=== PATIENT | female | born 1945 | race Caucasian/White ===

== ENCOUNTER 2016-02-05 14:54 | Inpatient (IN) | payer MEDICARE, BC ==
[~2016-02-05] VITALS: Ht 157.5 cm; Wt 73.0 kg
[2016-02-05] VITALS (13 sets, daily range): BP systolic 124–170; BP diastolic 80–96; PULSE 88–104; RESP 14–20; TEMP 97–98.8; O2SAT 95–98
[~2016-02-05 14:54] MED LIST: DIAZ5 PO; GABA600T PO; IPRAAER IN; LATU80TA PO; LOVA20TA PO; METF500 PO; PRED20 PO; REME15TA PO
[2016-02-05] MEDS ORDERED: SODIUM CHLORIDE 0.9% FLUSH 5 ML FLUSH IVF PRN (15:30)
[2016-02-05] MEDS ORDERED: SODIUM CHLORID 0.9% 500 ML INJ 500 ML IV ONE (15:30)
[2016-02-05] MEDS ORDERED: ASPIRIN 81 MG CHEW TAB PO ONE (15:30)
[2016-02-05] MEDS ORDERED: HEPARIN-D5W INJ 250 ML IV SCH (15:30)
[2016-02-05] MEDS ORDERED: CLOPIDOGREL 300 MG TAB PO ONE (15:30)
--- NOTE | 2016-02-05 15:38 | PD ---
HPI Chief Complaint: Chest Pain Time Seen by Provider: 15:04 Travel History International Travel<30 days: No Contact w/Intl Traveler<30days: No Traveled to known affect area: No History of Present Illness HPI Patient is a 70-year-old female who presents to emergency room with complaints of chest pain. Reports that she began feeling short of breath last night, reports that she felt tightness in her chest while at rest around 9 PM last night. Patient reports that she has history of COPD, reports "I think that I am having a COPD exacerbation." Patient reports that she is unable to catch her breath at this time. Patient reports that she feels sweaty right now while in ER. Denies cough or congestion. Patient denies fevers or chills. Patient reports that she does have a reports analyst, patient cannot remember her name of her reports analyst. Reports no history of coronary artery disease or LA in the past. Patient reports that she does have history of hypertension. PFSH Past Medical History COPD: Yes Diminished Hearing: No Hypertension: Yes Tetanus Vaccination: Unknown Past Surgical History Appendectomy: Yes Other Surgery: Yes (facial and oral reconstruction; tmj joint) Family History Family History: Negative Social History Alcohol Use: Yes (rare) Tobacco Use: Yes Substance Use: No Allergies-Medications (Allergen,Severity, Reaction): Coded Allergies: Sulfa (Verified Allergy, Severe, 08/05/15) Morphine (Verified Allergy, Intermediate, 08/05/15) Reported Meds & Prescriptions Reported Meds & Active Scripts Active Review of Systems General / Constitutional: No: Fever Eyes: No: Visual changes HENT: No: Headaches Cardiovascular: Positive: Chest Pain or Discomfort, Diaphoresis Respiratory: Positive: Shortness of Breath Gastrointestinal: No: Abdominal Pain Genitourinary: No: Dysuria Musculoskeletal: No: Pain Skin: No Rash Neurologic: No: Weakness Psychiatric: No: Depression Endocrine: No: Polydipsia Hematologic/Lymphatic: No: Easy Bruising Physical Exam Narrative GENERAL: Patient in moderate distress SKIN: Warm, pt diaphoretic HEAD: Atraumatic. Normocephalic. EYES: Pupils equal and round. No scleral icterus. No injection or drainage. ENT: No nasal bleeding or discharge. Mucous membranes pink and moist. NECK: Trachea midline. No JVD. CARDIOVASCULAR: Regular rate and rhythm. +3 systolic murmur RESPIRATORY: No accessory muscle use. Clear to auscultation. Breath sounds equal bilaterally. GASTROINTESTINAL: Abdomen soft, non-tender, nondistended. Hepatic and splenic margins not palpable. MUSCULOSKELETAL: No obvious deformities. No clubbing. No cyanosis. No edema. NEUROLOGICAL: Awake and alert. No obvious cranial nerve deficits. Motor grossly within normal limits. Normal speech. PSYCHIATRIC: Appropriate mood and affect; insight and judgment normal. Data Data Last Documented VS Vital Signs Date Time Temp Pulse Resp B/P Pulse Ox O2 Delivery O2 Flow Rate FiO2 02/05/16 15:23 96 Room Air 02/05/16 15:16 95 02/05/16 14:56 98.2 17 132/87 Orders Electrocardiogram (02/05/16 ) Electrocardiogram (02/05/16 15:21) B-Type Natriuretic Peptide (02/05/16 15:21) Ckmb (Isoenzyme) Profile (02/05/16 15:21) Complete Blood Count With Diff (02/05/16 15:21) Comprehensive Metabolic Panel (02/05/16 15:21) Prothrombin Time / Inr (Pt) (02/05/16 15:21) Act Partial Throm Time (Ptt) (02/05/16 15:21) Troponin I (02/05/16 15:21) Chest, Single Ap (02/05/16 15:21) Ecg Monitoring (02/05/16 15:21) Iv Access Insert/Monitor (02/05/16 15:21) Oximetry (02/05/16 15:21) Aspirin Chew (Aspirin Chew) (02/05/16 15:30) Clopidogrel (Plavix) (02/05/16 15:30) Sodium Chloride 0.9% Flush (Ns Flush) (02/05/16 15:30) Sodium Chlorid 0.9% 500 Ml Inj (Ns 500 M (02/05/16 15:30) I-Stat Profile (02/05/16 15:22) I-Stat Creatinine (02/05/16 15:22) Heparin Infusion LARRY.Q1H (02/05/16 15:22) Heparin Inj (Heparin Inj) (02/05/16 21:30) Heparin Inj (Heparin Inj) (02/05/16 21:30) Heparin-D5w Inj (Heparin-D5w Inj) (02/05/16 15:30) Admit To Inpatient (02/05/16 ) Inpatient Certification (02/05/16 ) MDM Medical Decision Making Medical Screen Exam Complete: Yes Emergency Medical Condition: Yes Interpretation(s) Vital Signs Date Time Temp Pulse Resp B/P Pulse Ox O2 Delivery O2 Flow Rate FiO2 02/05/16 15:23 96 Room Air 02/05/16 15:16 95 96 02/05/16 14:56 98.2 104 17 132/87 96 Vital Signs Date Time Temp Pulse Resp B/P Pulse Ox O2 Delivery O2 Flow Rate FiO2 02/05/16 15:23 96 Room Air 02/05/16 15:16 95 96 02/05/16 14:56 98.2 104 17 132/87 96 Differential Diagnosis Acute Coronary Syndrome, Unstable angina, COPD Exacerbation Narrative Course Patient is a 70-year-old female who presents emergency with complaints of chest pain which began around 9 PM last night. Patient reports history of COPD, reports "I think I am having a COPD exacerbation." Patient reports, "I'm having a hard time breathing, I just can' t catch my breath." Patient was placed on pulse oximeter as well as a case monitor on arrival to ER. EKG obtained, patient with ST segment elevations and leads V2 to V6 STEMI Alert called overhead. Case as well as EKG reviewed with Dr. Joyner, will bring patient to [facility] I-STAT labs Sodium 135 Potassium 4.9 BUN 29 Creatinine 0.7 Glucose 122 Hemoglobin 18.7 Hematocrit 55% Critical Care Narrative Aggregate critical care time was 30 minutes. Time to perform other separately billable procedures was not included in the critical care time. My time did not include minutes spent treating any other patients simultaneously or on activities that did not directly contribute to the patient's treatment. The services I provided to this patient were to treat and/or prevent clinically significant deterioration that could result in: , decompensation, deterioration I provided critical care services requiring my management, as noted below: Chart data review, documentation time, medication orders and management, vital sign assessments/reviewing monitor data, ordering and reviewing lab tests, ordering and interpreting/reviewing x-rays and diagnostic studies, care of the patient and discussion of the patient with the admitting physicians. Diagnosis Primary Impression: STEMI (ST elevation myocardial infarction) Qualified Code: I21.3 - ST elevation myocardial infarction (STEMI), unspecified artery Admitting Information Admitting Physician Requests: Admit Edyta Martinez 31, 2016 15:38
[2016-02-05] MEDS ORDERED: HEPARIN-NS/PF INJ 500 ML ONE (15:51)
[2016-02-05] MEDS ORDERED: MIDAZOLAM HCL 2 MG/2 ML VIAL ONE (15:53)
--- NOTE | 2016-02-05 16:04 | RADRPT ---
EXAM DATE/TIME: 02/05/2016 15:35 [facility] COMPARISON: CHEST SINGLE AP, August 05, 2015, 0:46. INDICATIONS : Stemi alert. MEDICAL HISTORY : Chronic obstructive pulmonary disease. SURGICAL HISTORY : None. ENCOUNTER: Initial ACUITY: 1 day PAIN SCORE: 10/10 LOCATION: Bilateral chest FINDINGS: Small lung volumes with mild atelectasis/vascular crowding. No overt edema seen. No pleural effusion or pneumothorax. Heart size normal. CONCLUSION: Suboptimal inspiration. No acute disease demonstrated. Followup 2 view study recommended when clinica lly feasible. Scott Jiang MD on February 05, 2016 at 16:02 Board Certified Radiologist. This report was verified electronically.
[2016-02-05 16:07] LABS: I-STAT POTASSIUM 4.9 MMOL/L (3.5-4.9)
[2016-02-05] MEDS ORDERED: HEPARIN SODIUM - IV 10,000 UNITS/10 ML VIAL ONE (16:12)
[2016-02-05 16:18] LABS: BASOPHIL # 0.1 TH/MM3 (0-0.2); BASOPHIL % 0.4 % (0.0-2.0); EOSINOPHIL # 0.1 TH/MM3 (0-0.4); EOSINOPHIL % 0.4 % (0.0-4.0); HEMATOCRIT 53.6 % (35.0-46.0); HEMO FLAGS DIFF FINAL; LYMPH % 8.9 % (9.0-44.0); LYMPHOCYTE # 1.7 TH/MM3 (1.0-4.8); MEAN CORPUSCULAR HEMOGLOBIN 30.2 PG (27.0-34.0); MEAN CORPUSCULAR HGB CONC 33.6 % (32.0-36.0); MONO % 7.7 % (0.0-8.0); NEUT % 82.6 % (16.0-70.0); PLATELET COUNT 285 TH/MM3 (150-450); RED BLOOD COUNT 5.96 MIL/MM3 (4.00-5.30); RED CELL DISTRIBUTION WIDTH 13.7 % (11.6-17.2); WHITE BLOOD COUNT 19.4 TH/MM3 (4.0-11.0)
[2016-02-05 16:21] LABS: APTT (PATIENT) 27.4 SEC (24.3-30.1); INTERNATIONAL NORMALIZED RATIO 0.9 RATIO; PROTHROMBIN TIME - PATIENT 10.3 SEC (9.8-11.6)
[2016-02-05] MEDS ORDERED: IOHEXOL 350 MG/ML 100 ML BTL (for Cath Lab) OTHER ONE (16:30)
[2016-02-05 16:34] LABS: ALT (GPT) 28 U/L (10-53); ANION GAP 10 MEQ/L (5-15); AST (GOT) 32 U/L (15-37); BICARBONATE 23.1 MEQ/L (21.0-32.0); BLOOD UREA NITROGEN 24 MG/DL (7-18); CHLORIDE 103 MEQ/L (98-107); GLOMERULAR FILTRATION RATE 54 ML/MIN (>89); POTASSIUM 4.5 MEQ/L (3.5-5.1); SODIUM (NA) 136 MEQ/L (136-145)
[2016-02-05 16:37] LABS: ALKALINE PHOSPHATASE 78 U/L (45-117); CREATINE KINASE 183 U/L (26-192); TOTAL BILIRUBIN ADULT 0.4 MG/DL (0.2-1.0)
[2016-02-05] MEDS ORDERED: NITROGLYCERIN 0.4 MG SL 25 TABS/BTL SL ONE (16:38)
[2016-02-05] MEDS ORDERED: ONDANSETRON HCL 4 MG/2 ML VIAL IVP PRN (16:45)
[2016-02-05] MEDS ORDERED: BACITRACIN OINT 0.9 GM PKT TOP ONE (16:45)
[2016-02-05] MEDS ORDERED: MISC INFORMATION XX ONE (16:45)
[2016-02-05 16:59] LABS: CKMB 14.4 NG/ML (0.5-3.6)
[2016-02-05] MEDS ORDERED: ACETAMINOPHEN 325 MG TAB PO PRN (17:15)
[2016-02-05] MEDS: MORPHINE SULFATE 4 MG/ML INJ IV PUSH PRN ×2 (17:18→21:09)
--- NOTE | 2016-02-05 17:23 | MB ---
cc: SIMON COOPER MD DATE OF CONSULTATION 02/05/[address]-elevation myocardial infarction. HISTORY OF PRESENT ILLNESS A 70-year-old female who presented to the emergency department with acute onset of shortness of breath and chest pain. She states that early this morning she developed this tightness in her chest. She has had some on and off symptoms since last night around 9:00 p.m. She does have a history of COPD and initially thought her shortness of breath was due to an exacerbation. Since her symptoms progressed she came to the emergency department. There an electrocardiogram was performed which did show anterolateral ST elevation. STEMI protocol was initiated. 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 PAST MEDICAL HISTORY COPD, hypertension. FAMILY HISTORY Denies any family history of early coronary disease, sudden cardiac . SOCIAL HISTORY Prior tobacco use. Occasional alcohol use. No substance abuse. ALLERGIES SULFA, MORPHINE. MEDICATIONS See med reconciliation. REVIEW OF SYSTEMS 12-point review of system was performed, negative unless otherwise noted in the history of present illness. PHYSICAL EXAMINATION VITAL SIGNS: Temperature 98, pulse is 93, blood pressure 141/80 mmHg. GENERAL: Alert and oriented x3. No acute distress. HEENT: Exam shows pupils are reactive to light and accommodation. Extraocular movements are intact. No elevation in jugular venous distension. No thyromegaly or lymphadenopathy. No carotid bruits. LUNGS: Clear to auscultation bilaterally. Decreased breath sounds throughout, mild end-expiratory wheeze. CARDIOVASCULAR: Regular rate and rhythm without murmurs, rubs or gallops. ABDOMEN: Abdominal exam is nontender, nondistended. Good bowel sounds. No hepatosplenomegaly. EXTREMITIES: No clubbing, cyanosis or edema. Good peripheral pulses. Cranial nerves intact. Motor, sensory grossly intact. LABORATORY DATA None. ELECTROCARDIOGRAM Electrocardiogram sinus rhythm, anterolateral ST-elevation. ASSESSMENT 1. ST-elevation myocardial infarction. 2. COPD 3. Hypertension. PLAN Given the patient's symptoms and EKG changes which is new in comparison to a prior EKG she will be brought emergently to the cardiac catheterization lab for attempted revascularization. The risks, benefits and alternatives discussed with the patient. She understood, consented to proceed. MD MARIA E Lin/RENALDO /3:59 PM /5:04 PM ZIA
--- NOTE | 2016-02-05 17:44 | MA ---
cc: SIMON COOPER MD DATE 02/05/2016 PROCEDURE PERFORMED 1. Fluoroscopy with interpretation. 2. Coronary angiography. 3. Left heart catheterization. 4. Left ventriculography. METHOD The risks, benefits and alternatives discussed with the patient. The patient understood and consent to procedure. PROCEDURE IN DETAIL The patient brought to the catheterization lab and placed on the catheterization table. The right wrist was prepped and draped in sterile fashion. Right wrist was anesthetized with 2% lidocaine. Right radial artery was cannulated and a 6-Qatari 7 cm sheath was placed without difficulty. ____ was actually acceptable. Left heart catheterization; 6-Qatari pigtail catheter was advanced across the aortic valve without difficulty. Intraventricular hemodynamics measured 141/19 mmHg. Coronary angiography; Left coronary circulation was selectively engaged 6-Qatari JL-3.5 catheter. Right coronary circulation selectively engaged with 6-Qatari JR-5 catheter. Angiography findings as follows: 1. Left main coronary is angiographically normal. 2. Left anterior descending coronary has mild luminal irregularities. There does appear to be a small myocardial bridge distally. 3. Left circumflex has mild luminal irregularities. 4. Right coronary is a dominant vessel giving rise to a posterior descending branch. Right coronary has minor luminal irregularities. Left ventriculography; Left ventriculography was performed right anterior oblique using a 30 cc contrast injection good opacification. Left ventricle ejection fraction visually estimated at 35%. There is mid anterior intraapical, apical, inferoapical akinesis. The anterior and posterior basal segments were hyperkinetic. The appearance of left ventriculogram was consistent with Takotsubo cardiomyopathy. CONCLUSION 1. Takotsubo cardiomyopathy, nonischemic etiology. 2. Mild nonobstructive coronary disease. 3. Normal to mildly elevated left-sided filling pressures. PLAN The patient has had a recent stressful event with her sister having a major surgery. Symptomatically, she seems to be doing well. She is still having some vague chest pain. EKG clearly showed some ST-elevation but her coronary angiogram was unremarkable and left ventriculogram consistent with her presentation of Takotsubo cardiomyopathy. Will initiate JENNIFER inhibitors, aspirin and statin. Radial sheath was removed. She does have some clubbing and cyanosis in all digits on both hands. The patient says she does have this periodically. We will monitor closely post procedure. MD KRYSTYNA Lin /4:41 PM /5:20 PM
[2016-02-05] MEDS ORDERED: SODIUM CHLOR 0.9% 1000 ML INJ 1,000 ML IV SCH (18:00)
[2016-02-05] MEDS: HYDROmorphone HCL PF 1 MG/ML VIAL IV PUSH PRN ×2 (18:51→23:41)
[2016-02-05] MEDS: FAMOTIDINE 20 MG TAB PO SCH (21:17)
[2016-02-05] MEDS: ATORVASTATIN 40 MG TAB PO SCH (21:17)
[2016-02-05] MEDS: CARVEDILOL 3.125 MG TAB PO SCH (21:17)
[2016-02-05] MEDS ORDERED: HEPARIN SODIUM - IV 10,000 UNITS/10 ML VIAL IV PRN ×2 (21:30)
[2016-02-05] MEDS ORDERED: FUROSEMIDE 40 MG/4 ML VIAL IV PUSH ONE (22:21)
--- NOTE | 2016-02-05 22:36 | RADRPT ---
EXAM DATE/TIME: 02/05/2016 21:51 [facility] COMPARISON: No previous studies available for comparison. INDICATIONS : Mid chest pains starting this morning. IV CONTRAST: 70 cc Omnipaque 350 (iohexol) IV RADIATION DOSE: 8.25 CTDIvol (mGy) MEDICAL HISTORY : Chronic obstructive pulmonary disease. Hypertension. SURGICAL HISTORY : Appendectomy. ENCOUNTER: Initial ACUITY: 1 day PAIN SCALE: 8/10 LOCATION: chest TECHNIQUE: Volumetric scanning was performed using a multi-row detector CT scanner. The data was post processed with a variety of visualization algorithms including full volume maximum intensity projection, multi -planar sliding thin slab reformation, curved planar reformation, and surface rendering techniques. Using automated exposure control and adjustment of the mA and/or kV according to patient size, radiat ion dose was kept as low as reasonably achievable to obtain optimal diagnostic quality images. FINDINGS: LUNGS: There is no consolidation or pneumothorax. No concerning pulmonary nodule is visualized. No pleural fluid is present. MEDIASTINUM: No abnormally enlarged lymph nodes by CT criteria. No axillary or hilar abnormalities are identified. Pulmonary arteries grossly unremarkable. ABDOMEN: The liver and spleen are free of focal defects. The gallbladder and pancreas demonstrate no abnormali ty. The adrenal glands are normal. The kidneys demonstrate no evidence of solid renal mass or hydrone phrosis. No free fluid or abdominal masses are identified. No para-aortic adenopathy is seen. PELVIS: No evidence of free fluid or pelvic mass. No abnormally enlarged inguinal or retroperitoneal lymph no alaina are present. The bladder is unremarkable. THORACIC AORTA: The thoracic aortic root is normal with normal branching of the great vessels. There is no evidence of aneurysm or dissection. There is moderate severity atherosclerotic plaque. ABDOMINAL AORTA: The aorta is normal in caliber without aneurysm or dissection. The renal arteries are patent bilater ally. The proximal celiac and superior mesenteric arteries are patent and normal in diameter. There is moderate to severe aortoiliac atherosclerosis. No aneurysm. No ulcerated plaque. PELVIC VESSELS: The internal iliac and external iliac vessels are patent without aneurysm or stenosis. CONCLUSION: No dissection, aneurysm or other acute abnormality of the aorta. There is mural atherosclerosis. No p erceptible inflammatory changes are seen. Trace atelectasis seen of the lung bases. Study discussed w kwabena Joyner by phone. Scott Jiang MD on February 05, 2016 at 22:28 Board Certified Radiologist. This report was verified electronically.
[2016-02-05] MEDS ORDERED: IOHEXOL 350 MG/ML 10 ML VIAL (for RAD DIAG) IV ONE (23:01)
[2016-02-06] VITALS (9 sets, daily range): BP systolic 102–117; BP diastolic 59–77; PULSE 73–90; RESP 20–22; TEMP 96.8–99.8; O2SAT 91–99
[2016-02-06] MEDS: RESP: ALBUTEROL 2.5 MG/IPRATROPIUM 0.5 MG NEB (SCH) NEB ×5 (00:12→22:04)
[2016-02-06] MEDS: MORPHINE SULFATE 4 MG/ML INJ IV PUSH PRN ×4 (01:40→17:46)
[2016-02-06] MEDS ORDERED: METOPROLOL TARTRATE 5 MG/5 ML VIAL IV PUSH PRN (03:15)
[2016-02-06] MEDS ORDERED: RESP: ALBUTEROL 2.5 MG/3 ML NEB (PRN) NEB (03:30)
[2016-02-06] MEDS ORDERED: oxyCODONE/ACETAMINOPHEN 10 MG/325 MG TAB PO PRN ×2 (03:30→09:30)
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
[2016-02-06] MEDS: oxyCODONE/ACETAMINOPHEN 10 MG/325 MG TAB PO PRN ×3 (04:10→13:10)
[2016-02-06] MEDS: HYDROmorphone HCL PF 1 MG/ML VIAL IV PUSH PRN ×4 (04:10→17:43)
[2016-02-06] MEDS: CARVEDILOL 3.125 MG TAB PO SCH ×2 (08:06→20:44)
[2016-02-06] MEDS: ISOSORBIDE MONONITRATE 30 MG TAB PO SCH ×2 (08:06→08:36)
[2016-02-06] MEDS: LISINOPRIL 20 MG TAB PO SCH (08:06)
[2016-02-06] MEDS: ASPIRIN EC 81 MG TABEC PO SCH (08:06)
[2016-02-06] MEDS: FAMOTIDINE 20 MG TAB PO SCH ×2 (08:06→20:45)
[2016-02-06] MEDS: HEPARIN SODIUM - SQ 10,000 UNITS/ML VIAL SQ SCH ×3 (10:53→20:46)
--- NOTE | 2016-02-06 11:21 | PD.CARD.PN ---
Subjective Subjective Remarks still having + chest pain worse with palpation and deep inspiration transferred to CVICU yesterday. Objective Medications Active Medications Acetaminophen (Tylenol) 325 mg Q4H PRN PO; Start 02/05/16 at 17:15; Stop at 03:29; Status DC Aspirin (Aspirin Chew) 324 mg ONCE ONCE PO Last administered on 02/05/16at 15: 28; Admin Dose 324 MG; Start 02/05/16 at 15:30; Stop 02/05/16 at 15:31; Status DC Aspirin (Ecotrin Ec) 81 mg DAILY PO Last administered on 02/06/16 08:06; Admin Dose 81 MG; Start 02/06/16 at 09:00 Atorvastatin Calcium (Lipitor) 40 mg HS PO Last administered on 02/05/16at 21:17 ; Admin Dose 40 MG; Start 02/05/16 at 21:00 Bacitracin (Bacitracin Oint Packet) 0.9 gm ONCE ONCE TOP; Start 02/05/16 at 16 :45; Stop 02/05/16 at 16:46; Status DC Carvedilol (Coreg) 3.125 mg Q12HR PO Last administered on 02/06/16 08:06; Admin Dose 3.125 MG; Start 02/05/16 at 21:00 Clopidogrel Bisulfate (Plavix) 600 mg ONCE ONCE PO Last administered on at 15:30; Admin Dose 600 MG; Start 02/05/16 at 15:30; Stop 02/05/16 at 15:31 ; Status DC Famotidine (Pepcid) 20 mg BID PO Last administered on 02/06/16 08:06; Admin Dose 20 MG; Start 02/05/16 at 21:00 Fentanyl Citrate (fentaNYL INJ) 100 mcg STK-MED ONCE .ROUTE Last administered on 02/05/16at 16:11; Admin Dose 100 MCG; Start 02/05/16 at 15:53; Stop at 15:54; Status DC Furosemide (Lasix Inj) 40 mg NOW ONCE IV PUSH Last administered on 02/05/16at 22:49; Admin Dose 40 MG; Start 02/05/16 at 22:21; Stop 02/05/16 at 22:22; Status DC Heparin Sodium (Porcine) (Heparin Inj) 5,000 units Q8HR SQ Last administered on 02/06/16 10:53; Admin Dose 5,000 UNITS; Start 02/06/16 at 10:00 Heparin Sodium (Porcine) (Heparin Inj) 5,000 units UNSCH PRN IV; Start at 21:30; Stop 02/05/16 at 21:30; Status DC Heparin Sodium (Porcine) (Heparin Inj) 10,000 units STK-MED ONCE .ROUTE; Start 02/05/16 at 16:12; Stop 02/05/16 at 16:13; Status DC Heparin Sodium (Porcine) 2500 units 2,500 units UNSCH PRN IV; Start 02/05/16 at 21:30; Stop 02/05/16 at 21:30; Status DC Heparin Sodium/ Dextrose 250 ml @ 0 mls/hr TITRATE IV Last administered on 02/04at 15:48; Admin Dose 0 MLS/HR; Start 02/05/16 at 15:30; Stop 02/05/16 at 16 :37; Status DC Heparin Sodium/ Sodium Chloride (Heparin-NS/Pf Inj) 500 ml @ As Directed STK- MED ONCE .ROUTE Last administered on 02/05/16at 15:51; Admin Dose 500 MLS/HR; Start 02/05/16 at 15:51; Stop 02/05/16 at 15:52; Status DC Hydromorphone HCl 0.5 mg 0.5 mg Q4H PRN IV PUSH Last administered on 02/06/16 10:01; Admin Dose 0.5 MG; Start 02/05/16 at 18:00 Iohexol (Omnipaque 350 Inj) 70 ml STK-MED ONCE IV Last administered on at 23:01; Admin Dose 70 ML; Start 02/05/16 at 23:01; Stop 02/05/16 at 23:02 ; Status DC Isosorbide Mononitrate (Imdur) 30 mg DAILY PO Last administered on 02/06/16 08: 06; Admin Dose 30 MG; Start 02/05/16 at 17:00 IV Flush 2 ml 2 ml UNSCH PRN IVF Last administered on 02/06/16 08:06; Admin Dose 2 ML; Start 02/05/16 at 15:30 Lisinopril (Prinivil) 20 mg DAILY PO Last administered on 02/06/16 08:06; Admin Dose 20 MG; Start 02/06/16 at 09:00 Lorazepam (Ativan Inj) 0.5 mg Q6H PRN IV PUSH; Start 02/06/16 at 05:30 Methylprednisolone Sodium Succinate (SoluMEDROL INJ) 40 mg Q6HR IV PUSH; Start 02/06/16 at 12:00; Stop 02/07/16 at 06:01 Metoprolol Tartrate (Lopressor Inj) 2.5 mg Q6H PRN IV PUSH; Start 02/06/16 at 03 :15 Midazolam HCl (Versed Inj) 2 mg STK-MED ONCE .ROUTE Last administered on at 16:10; Admin Dose 2 MG; Start 02/05/16 at 15:53; Stop 02/05/16 at 15:54; Status DC Miscellaneous Information 1 ONCE ONCE XX; Start 02/05/16 at 16:45; Stop 02/04 at 16:46; Status DC Morphine Sulfate (Morphine Inj) 2 mg Q30M PRN IV PUSH Last administered on 09:16; Admin Dose 2 MG; Start 02/05/16 at 17:15 Nitroglycerin (Nitrostat Sl (Adm Override)) 0.4 mg STK-MED ONCE SL Last administered on 02/05/16at 16:38; Admin Dose 0.4 MG; Start 02/05/16 at 16:38; Stop 02/05/16 at 16:39; Status DC Ondansetron HCl (Zofran Inj) 4 mg Q6H PRN IVP; Start 02/05/16 at 16:45 Oxycodone/ Acetaminophen (Percocet 10-325 Mg) 1 tab Q6H PRN PO Last administered on 02/06/16 08:16; Admin Dose 1 TAB; Start 02/06/16 at 03:30 Oxycodone/ Acetaminophen (Percocet 10-325 Mg) 2 tab Q6H PRN PO; Start 02/06/16 at 03:30; Stop 02/06/16 at 03:44; Status DC Oxycodone/ Acetaminophen (Percocet 10-325 Mg) 2 tab Q6H PRN PO; Start 02/06/16 at 09:30 Sodium Chloride (NS 1000 ml Inj) 1,000 ml @ 84 mls/hr [id number] IV Last administered on 02/05/16at 18:55; Admin Dose 84 MLS/HR; Start 02/05/16 at 18:00 ; Stop 02/06/16 at 03:23; Status DC Sodium Chloride (NS 500 ml Inj) 500 ml @ 500 mls/hr ONCE ONCE IV Last administered on 02/05/16at 15:47; Admin Dose 500 MLS/HR; Start 02/05/16 at 15: 30; Stop 02/05/16 at 16:29; Status DC Vital Signs / I&O Vital Signs Date Time Temp Pulse Resp B/P Pulse Ox O2 Delivery O2 Flow Rate FiO2 02/06/16 10:31 20 02/06/16 09:49 97 Nasal Cannula 2.00 02/06/16 09:21 20 02/06/16 09:16 20 02/06/16 08:00 80 02/06/16 08:00 98 Nasal Cannula 2.00 02/06/16 08:00 98.2 80 22 114/73 98 02/06/16 04:00 98 Nasal Cannula 2.00 02/06/16 03:00 99.8 89 20 114/75 97 02/06/16 03:00 90 02/06/16 00:12 97 Nasal Cannula 2.00 02/05/16 23:15 98.4 88 16 149/95 97 02/05/16 23:15 98 Nasal Cannula 2.00 02/05/16 23:15 94 02/05/16 23:00 98.8 92 14 153/91 98 02/05/16 20:59 98.7 88 14 170/96 95 02/05/16 20:00 98.7 96 14 124/93 96 02/05/16 18:30 93 154/94 02/05/16 18:00 88 02/05/16 18:00 88 156/90 02/05/16 17:15 92 159/81 02/05/16 17:00 93 154/94 02/05/16 17:00 93 02/05/16 16:47 97.0 100 20 158/94 97 02/05/16 16:00 100 02/05/16 15:50 93 18 141/80 96 Nasal Cannula 2 02/05/16 15:23 96 Room Air 02/05/16 15:16 95 96 12/31/16 14:56 98.2 104 17 132/87 96 I/O 02/05/16 02/05/16 02/05/16 02/06/16 02/06/16 02/06/16 06:59 14:59 22:59 06:59 14:59 22:59 Intake Total 480 ml Output Total 200 ml Balance 280 ml Intake Oral 480 ml Output Urine Total 200 ml # Bowel Movements 0 Physical Exam GENERAL: SKIN: Warm and dry. HEAD: Normocephalic. EYES: No scleral icterus. No injection or drainage. NECK: Supple, trachea midline. No JVD or lymphadenopathy. CARDIOVASCULAR: Regular rate and rhythm without murmurs, gallops, or rubs. RESPIRATORY: Breath sounds equal bilaterally. No accessory muscle use. GASTROINTESTINAL: Abdomen soft, non-tender, nondistended. MUSCULOSKELETAL: No cyanosis, or edema. BACK: Nontender without obvious deformity. No CVA tenderness. Laboratory Laboratory Tests Test 02/05/16 15:40 White Blood Count 19.4 TH/MM3 Red Blood Count 5.96 MIL/MM3 Hemoglobin 18.0 GM/DL Bedside Hemoglobin 18.7 G/DL Hematocrit 53.6 % Bedside Hematocrit 55.0 % Mean Corpuscular Volume 90.0 FL Mean Corpuscular Hemoglobin 30.2 PG Mean Corpuscular Hemoglobin 33.6 % Concent Red Cell Distribution Width 13.7 % Platelet Count 285 TH/MM3 Mean Platelet Volume 8.6 FL Neutrophils (%) (Auto) 82.6 % Lymphocytes (%) (Auto) 8.9 % Monocytes (%) (Auto) 7.7 % Eosinophils (%) (Auto) 0.4 % Basophils (%) (Auto) 0.4 % Neutrophils # (Auto) 16.0 TH/MM3 Lymphocytes # (Auto) 1.7 TH/MM3 Monocytes # (Auto) 1.5 TH/MM3 Eosinophils # (Auto) 0.1 TH/MM3 Basophils # (Auto) 0.1 TH/MM3 CBC Comment DIFF FINAL Differential Comment Prothrombin Time 10.3 SEC Prothromb Time International 0.9 RATIO Ratio Activated Partial 27.4 SEC Thromboplast Time Bedside Sodium 135 MMOL/L Sodium Level 136 MEQ/L Bedside Potassium 4.9 MMOL/L Potassium Level 4.5 MEQ/L Bedside Chloride 106 MMOL/L Chloride Level 103 MEQ/L Carbon Dioxide Level 23.1 MEQ/L Anion Gap 10 MEQ/L Bedside Blood Urea Nitrogen 29 MG/DL Blood Urea Nitrogen 24 MG/DL Creatinine 1.01 MG/DL Bedside Creatinine 0.7 MG/DL Estimat Glomerular Filtration 54 ML/MIN Rate Bedside Glucose 122 MG/DL Random Glucose 122 MG/DL Calcium Level 9.6 MG/DL Total Bilirubin 0.4 MG/DL Aspartate Amino Transf 32 U/L (AST/SGOT) Alanine Aminotransferase 28 U/L (ALT/SGPT) Alkaline Phosphatase 78 U/L Total Creatine Kinase 183 U/L Creatine Kinase MB 14.4 NG/ML Troponin I 2.98 NG/ML B-Type Natriuretic Peptide 1026 PG/ML Total Protein 8.2 GM/DL Albumin 4.2 GM/DL Thyroid Stimulating Hormone 1.410 uIU/ML 3rd Gen Imaging Last Impressions Chest X-Ray 02/05/16 1521 Signed Impressions: Service Date/Time: Friday, February 05, 2016 15:35 - CONCLUSION: Suboptimal inspiration. No acute disease demonstrated. Followup 2 view study recommended when clinically feasible. Scott Jiang MD Aorta CTA 02/05/16 0000 Signed Impressions: Service Date/Time: Friday, February 05, 2016 21:51 - CONCLUSION: No dissection, aneurysm or other acute abnormality of the aorta. There is mural atherosclerosis. No perceptible inflammatory changes are seen. Trace atelectasis seen of the lung bases. Study discussed with Dr. Joyner by phone. Scott Jiang MD Assessment and Plan Assessment and Plan STEMI - Takotsubo cardiomyopathy. well compensated. mild CAD. no PCI. chest pain - CTA negative. not cardiac. + pleuritic + pericarditis. inflammatory. cont steroids. start NSAIDs. transfer to telemetry floor Kumar Joyner MD Feb 06, 2016 11:21
[2016-02-06] MEDS: methylPREDNISolone SOD SUCC 40 MG/1 ML VIAL IV PUSH SCH ×2 (11:35→17:41)
--- NOTE | 2016-02-06 13:07 | EKG ---
Date Performed: 02/05/2016 Time Performed: 15:09:58 PTAGE: 70 years EKG: Sinus rhythm ST ELEVATION, CONSIDER ANTERIOR INJURY ACUTE AR Compared to PREVIOUS TRACING , the patient has developed changes consistent with an anterolateral ST segment elevation infarction. Clinical correlation will be important. PREVIOUS TRACIN08/05/2015 00 .40 DOCTOR: Veronica Green Interpretating Date/Time 02/06/2016 13:06:01
--- NOTE | 2016-02-06 13:08 | EKG ---
Date Performed: 02/05/2016 Time Performed: 17:10:56 PTAGE: 70 years EKG: Sinus rhythm Anterolateral T wave changes may be due to myocardial ischemia The patient has persistent findings o f an ST segment elevation anterolateral infarct but the tracing is largely unchanged since the most r ecent tracing. Abnormal ECG PREVIOUS TRACING : 02/05/2016 15.09 DOCTOR: Veronica Green Interpretating Date/Time 02/06/2016 13:06:48
--- NOTE | 2016-02-06 13:14 | EKG ---
Date Performed: 02/05/2016 Time Performed: 23:35:40 PTAGE: 70 years EKG: Sinus rhythm Possible inferior infarct - age undetermined Ant/septal and lateral T wave changes suggest myocardia l infarct When compared to previous tracing, progressive changes of an Anterolateral ST segment eleva tion infarction now with possible Inferior wall involvement. Clinical correlation will be important. Abnormal ECG PREVIOUS TRACING : 02/05/2016 17.10 DOCTOR: Veronica Green Interpretating Date/Time 02/06/2016 13:12:54
[2016-02-06 14:15] LABS: AUTOMATED NEUTROPHIL # 10.2 TH/MM3 (1.8-7.7); BASOPHIL # 0.1 TH/MM3 (0-0.2); BASOPHIL % 0.4 % (0.0-2.0); EOSINOPHIL # 0.2 TH/MM3 (0-0.4); EOSINOPHIL % 1.3 % (0.0-4.0); HEMATOCRIT 53.1 % (35.0-46.0); HEMO FLAGS DIFF FINAL; LYMPH % 11.1 % (9.0-44.0); LYMPHOCYTE # 1.5 TH/MM3 (1.0-4.8); MEAN CELL VOLUME 90.3 FL (80.0-100.0); MEAN CORPUSCULAR HEMOGLOBIN 30.5 PG (27.0-34.0); MEAN CORPUSCULAR HGB CONC 33.7 % (32.0-36.0); MONO % 11.1 % (0.0-8.0); NEUT % 76.1 % (16.0-70.0); PLATELET COUNT 278 TH/MM3 (150-450); RED BLOOD COUNT 5.88 MIL/MM3 (4.00-5.30); RED CELL DISTRIBUTION WIDTH 13.9 % (11.6-17.2); WHITE BLOOD COUNT 13.4 TH/MM3 (4.0-11.0)
[2016-02-06 14:36] LABS: BICARBONATE 23.9 MEQ/L (21.0-32.0); POTASSIUM 4.2 MEQ/L (3.5-5.1)
[2016-02-06 14:38] LABS: HDL CHOLESTEROL 85.6 MG/DL (40.0-60.0)
[2016-02-06 17:33] LABS: AMPHETAMINE, URINE NEG (NEG); BARBITURATES, URINE NEG (NEG); COCAINE, URINE NEG (NEG)
[2016-02-06] MEDS: IBUPROFEN 600 MG TAB PO SCH ×2 (20:43→23:17)
[2016-02-06] MEDS: ATORVASTATIN 40 MG TAB PO SCH (20:45)
[2016-02-07] VITALS (8 sets, daily range): BP systolic 100–141; BP diastolic 56–70; PULSE 67–78; RESP 20; TEMP 97.1–98; O2SAT 95–96
[2016-02-07] MEDS: methylPREDNISolone SOD SUCC 40 MG/1 ML VIAL IV PUSH SCH ×2 (00:08→05:41)
[2016-02-07] MEDS: LORazepam 2 MG/ML VIAL IV PUSH PRN (00:22)
[2016-02-07] MEDS: IBUPROFEN 600 MG TAB PO SCH ×3 (03:17→18:34)
[2016-02-07] MEDS: RESP: ALBUTEROL 2.5 MG/IPRATROPIUM 0.5 MG NEB (SCH) NEB ×4 (04:12→21:02)
[2016-02-07] MEDS: HEPARIN SODIUM - SQ 10,000 UNITS/ML VIAL SQ SCH ×3 (05:33→20:54)
[2016-02-07] MEDS: HYDROmorphone HCL PF 1 MG/ML VIAL IV PUSH PRN (05:34)
[2016-02-07] MEDS: MORPHINE SULFATE 4 MG/ML INJ IV PUSH PRN ×2 (06:47→15:08)
[2016-02-07] MEDS: ASPIRIN EC 81 MG TABEC PO SCH (09:00)
[2016-02-07] MEDS: FAMOTIDINE 20 MG TAB PO SCH ×2 (09:01→20:52)
[2016-02-07] MEDS: LISINOPRIL 20 MG TAB PO SCH (09:01)
[2016-02-07] MEDS: CARVEDILOL 3.125 MG TAB PO SCH ×2 (09:01→20:52)
[2016-02-07] MEDS: ISOSORBIDE MONONITRATE 30 MG TAB PO SCH (09:01)
[2016-02-07 09:18] LABS: AUTOMATED NEUTROPHIL # 10.1 TH/MM3 (1.8-7.7); BASOPHIL % 0.2 % (0.0-2.0); HEMATOCRIT 50.1 % (35.0-46.0); HEMO FLAGS DIFF FINAL; LYMPH % 8.8 % (9.0-44.0); MEAN CELL VOLUME 92.3 FL (80.0-100.0); MEAN CORPUSCULAR HEMOGLOBIN 30.2 PG (27.0-34.0); MEAN CORPUSCULAR HGB CONC 32.8 % (32.0-36.0); MONO % 4.9 % (0.0-8.0); NEUT % 86.1 % (16.0-70.0); PLATELET COUNT 237 TH/MM3 (150-450); RED BLOOD COUNT 5.43 MIL/MM3 (4.00-5.30); RED CELL DISTRIBUTION WIDTH 14.2 % (11.6-17.2); WHITE BLOOD COUNT 11.8 TH/MM3 (4.0-11.0)
[2016-02-07 09:29] LABS: BICARBONATE 22.1 MEQ/L (21.0-32.0); MAGNESIUM 2.5 MG/DL (1.5-2.5)
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
--- NOTE | 2016-02-07 11:12 | HHI.PR ---
Subjective History of Present Illness feels better CP is better No SOB No cough or sputum No fever or chills No N/V good appetite +ve ch back pain offers no other c/o Vitals/Results Intake & Output 02/06/16 02/06/16 02/07/16 15:00 23:00 07:00 Intake Total 482 ml 0 ml Balance 482 ml 0 ml Intake Oral 480 ml IV Total 2 ml 0 ml # Voids 1 # Bowel Movements 0 Vital Signs Vital Signs Date Time Temp Pulse Resp B/P Pulse Ox O2 Delivery O2 Flow Rate FiO2 02/07/16 08:00 98.0 67 20 134/68 96 02/07/16 04:45 78 02/07/16 04:00 97.5 68 20 100/56 95 02/07/16 00:00 97.1 75 20 104/56 95 02/06/16 22:05 94 Nasal Cannula 2.00 02/06/16 20:00 97.2 75 20 102/60 95 02/06/16 19:45 Nasal Cannula 2.00 02/06/16 16:34 Nasal Cannula 2.00 02/06/16 16:30 73 02/06/16 16:00 96.8 75 20 116/59 91 02/06/16 14:16 20 02/06/16 14:16 20 02/06/16 11:45 99.0 76 20 117/77 99 02/06/16 11:45 76 CBC/BMP: 02/07/16 0841 02/07/16 0842 Lab Results Laboratory Tests Test 02/06/16 02/06/16 02/07/16 02/07/16 14:03 16:14 08:41 08:42 White Blood Count 13.4 TH/MM3 11.8 TH/MM3 Red Blood Count 5.88 MIL/MM3 5.43 MIL/MM3 Hemoglobin 17.9 GM/DL 16.4 GM/DL Hematocrit 53.1 % 50.1 % Mean Corpuscular Volume 90.3 FL 92.3 FL Mean Corpuscular Hemoglobin 30.5 PG 30.2 PG Mean Corpuscular Hemoglobin 33.7 % 32.8 % Concent Red Cell Distribution Width 13.9 % 14.2 % Platelet Count 278 TH/MM3 237 TH/MM3 Mean Platelet Volume 8.2 FL 8.1 FL Neutrophils (%) (Auto) 76.1 % 86.1 % Lymphocytes (%) (Auto) 11.1 % 8.8 % Monocytes (%) (Auto) 11.1 % 4.9 % Eosinophils (%) (Auto) 1.3 % 0.0 % Basophils (%) (Auto) 0.4 % 0.2 % Neutrophils # (Auto) 10.2 TH/MM3 10.1 TH/MM3 Lymphocytes # (Auto) 1.5 TH/MM3 1.0 TH/MM3 Monocytes # (Auto) 1.5 TH/MM3 0.6 TH/MM3 Eosinophils # (Auto) 0.2 TH/MM3 0.0 TH/MM3 Basophils # (Auto) 0.1 TH/MM3 0.0 TH/MM3 CBC Comment DIFF FINAL DIFF FINAL Differential Comment Erythrocyte Sedimentation Rate 5 mm/hr D-Dimer Quantitative (PE/DVT) 1.70 MG/L FEU Sodium Level 134 MEQ/L 130 MEQ/L Potassium Level 4.2 MEQ/L 5.0 MEQ/L Chloride Level 101 MEQ/L 98 MEQ/L Carbon Dioxide Level 23.9 MEQ/L 22.1 MEQ/L Anion Gap 9 MEQ/L 10 MEQ/L Blood Urea Nitrogen 18 MG/DL 36 MG/DL Creatinine 0.94 MG/DL 1.19 MG/DL Estimat Glomerular Filtration 59 ML/MIN 45 ML/MIN Rate Random Glucose 127 MG/DL 140 MG/DL Calcium Level 9.1 MG/DL 8.6 MG/DL Troponin I 1.21 NG/ML C-Reactive Protein 16.60 MG/DL Triglycerides Level 114 MG/DL Cholesterol Level 210 MG/DL LDL Cholesterol 102 MG/DL HDL Cholesterol 85.6 MG/DL Cholesterol/HDL Ratio 2.45 RATIO Urine Opiates Screen POS Urine Barbiturates Screen NEG Urine Amphetamines Screen NEG Urine Benzodiazepines Screen POS Urine Cocaine Screen NEG Urine Cannabinoids Screen POS Hematology Comments Phosphorus Level 2.9 MG/DL Magnesium Level 2.5 MG/DL Physical Exam General General Appearance: No Acute Distress, Comfortable Eyes Eye Exam: Pupils Equal, Sclera White, Extraocular Movement Intact Ears & Nose Ears & Nose Exam: Nasal Mucosa Alicia Throat Throat Exam: Oral Mucosa Alicia & Moist Neck Neck Exam: Neck Supple, Trachea Midline Pulmonary Resp Exam: Clear Bilaterally, Breath Sounds Equal, No Distress Cardiology CV Exam: Regular, Normal Sinus Rhythm Gastrointestinal/Abdomen GI Exam: Soft, Non-Tender, Bowel Sounds Present Integumentary Skin Exam: Warm, Dry Extremeties Extremities Exam: No Edema, Pedal Pulses Palpable Neurologic Neuro Exam: Alert, Awake, Oriented, Speech Clear, Moving All Extremities Psychiatric Psych Exam: Appropriate Responses PUD Prophylasis PUD Prophylaxis: Protonix Assessment/Plan Assessment/Plan ASSESSMENT 1. Acute ST elevation [place] due to takotsubo syndrome. 2. Dilated cardiomyopathy. 3. Mild Non obstructive coronary artery disease. 4. Hypertension. 5. Chronic smoker, recently stopped. 6. Chronic obstructive pulmonary disease. 7. Erythrocytosis rule out polycythemia vera. 8. Leukocytosis. 9. Degenerative disc disease with chronic back pain. 10. History of left mandible repair. The patient has some mild facial deformities that I forgot to mention above. PLAN o2 ASA BB JENNIFER-I statin Ibuprofen erythrocytosis is better bun/cr little pepcid sq heparin cont analgesic repeat Echo done by card [facility] ss for d/c planning d/w Dr Joyner , he is contemplating [facility] am labs Dr lema will f/u in am Yossi Humphrey MD Feb 07, 2016 11:12
--- NOTE | 2016-02-07 15:01 | PD.CARD.PN ---
Subjective Subjective Remarks CP improving clinically stable Objective Vital Signs / I&O Vital Signs Date Time Temp Pulse Resp B/P Pulse Ox O2 Delivery O2 Flow Rate FiO2 02/07/16 12:00 97.8 72 20 126/67 95 02/07/16 08:00 98.0 67 20 134/68 96 02/07/16 04:45 78 02/07/16 04:00 97.5 68 20 100/56 95 02/07/16 00:00 97.1 75 20 104/56 95 02/06/16 22:05 94 Nasal Cannula 2.00 02/06/16 20:00 97.2 75 20 102/60 95 02/06/16 19:45 Nasal Cannula 2.00 02/06/16 16:34 Nasal Cannula 2.00 02/06/16 16:30 73 02/06/16 16:00 96.8 75 20 116/59 91 I/O 02/06/16 02/06/16 02/06/16 02/07/16 02/07/16 02/07/16 07:00 15:00 23:00 07:00 15:00 23:00 Intake Total 480 ml 482 ml 0 ml Output Total 200 ml Balance 280 ml 482 ml 0 ml Intake Oral 480 ml 480 ml IV Total 2 ml 0 ml Output Urine Total 200 ml # Voids 1 # Bowel Movements 0 0 Physical Exam GENERAL: SKIN: Warm and dry. HEAD: Normocephalic. EYES: No scleral icterus. No injection or drainage. NECK: Supple, trachea midline. No JVD or lymphadenopathy. CARDIOVASCULAR: Regular rate and rhythm without murmurs, gallops, or rubs. RESPIRATORY: Breath sounds equal bilaterally. No accessory muscle use. GASTROINTESTINAL: Abdomen soft, non-tender, nondistended. MUSCULOSKELETAL: No cyanosis, or edema. BACK: Nontender without obvious deformity. No CVA tenderness. Laboratory Laboratory Tests Test 02/06/16 02/07/16 02/07/16 16:14 08:41 08:42 Urine Opiates Screen POS Urine Barbiturates Screen NEG Urine Amphetamines Screen NEG Urine Benzodiazepines Screen POS Urine Cocaine Screen NEG Urine Cannabinoids Screen POS White Blood Count 11.8 TH/MM3 Red Blood Count 5.43 MIL/MM3 Hemoglobin 16.4 GM/DL Hematocrit 50.1 % Mean Corpuscular Volume 92.3 FL Mean Corpuscular Hemoglobin 30.2 PG Mean Corpuscular Hemoglobin 32.8 % Concent Red Cell Distribution Width 14.2 % Platelet Count 237 TH/MM3 Mean Platelet Volume 8.1 FL Neutrophils (%) (Auto) 86.1 % Lymphocytes (%) (Auto) 8.8 % Monocytes (%) (Auto) 4.9 % Eosinophils (%) (Auto) 0.0 % Basophils (%) (Auto) 0.2 % Neutrophils # (Auto) 10.1 TH/MM3 Lymphocytes # (Auto) 1.0 TH/MM3 Monocytes # (Auto) 0.6 TH/MM3 Eosinophils # (Auto) 0.0 TH/MM3 Basophils # (Auto) 0.0 TH/MM3 CBC Comment DIFF FINAL Differential Comment Hematology Comments Sodium Level 130 MEQ/L Potassium Level 5.0 MEQ/L Chloride Level 98 MEQ/L Carbon Dioxide Level 22.1 MEQ/L Anion Gap 10 MEQ/L Blood Urea Nitrogen 36 MG/DL Creatinine 1.19 MG/DL Estimat Glomerular Filtration 45 ML/MIN Rate Random Glucose 140 MG/DL Calcium Level 8.6 MG/DL Phosphorus Level 2.9 MG/DL Magnesium Level 2.5 MG/DL Imaging Last Impressions Chest X-Ray 02/05/16 1521 Signed Impressions: Service Date/Time: Friday, February 05, 2016 15:35 - CONCLUSION: Suboptimal inspiration. No acute disease demonstrated. Followup 2 view study recommended when clinically feasible. Scott Jiang MD Aorta CTA 02/05/16 0000 Signed Impressions: Service Date/Time: Friday, February 05, 2016 21:51 - CONCLUSION: No dissection, aneurysm or other acute abnormality of the aorta. There is mural atherosclerosis. No perceptible inflammatory changes are seen. Trace atelectasis seen of the lung bases. Study discussed with Dr. Joyner by phone. Scott Jiang MD Assessment and Plan Assessment and Plan STEMI - Takotsubo cardiomyopathy. well compensated. mild CAD. no PCI. chest pain - + pleuritic . inflammatory. cont steroids. NSAIDs. nonischemic cardiomyopathy - EF reduced. fully expect EF to improve in next few months. Plan for LifeVest for arrhythmia protection and then FU 2d echo in 2 months DC planning for tomorrow Kumar Joyner MD Feb 07, 2016 15:01
--- NOTE | 2016-02-07 15:34 | EC ---
Study Study Date:02/07/2016 STUDY CONCLUSIONS SUMMARY - Left ventricle: The cavity size was mildly dilated. Wall thickness was normal. Systolic function was severely reduced by visual assessment. The estimated ejection fraction was in the range of 30% to 35%. Akinesis of the mid-distal anteroseptal, anterior, anterolateral, and apical myocardium. - Aortic valve: Mild regurgitation. - Mitral valve: Mild regurgitation. - Tricuspid valve: Mild regurgitation. - Pulmonary arteries: PA peak pressure: 36mm Hg (S). If LV function is below 40, please consider prescribing an ACEI or ARB or document rationale for non-use. PROCEDURE DATA STUDY STATUS: Elective. Procedure: Transthoracic echocardiography. Image quality was good. Scanning was performed from the parasternal, apical, and subcostal acoustic windows. Study completion: The patient tolerated the procedure well. Transthoracic echocardiography. M-mode, complete 2D, complete spectral Doppler, and color Doppler. Patient status: Inpatient. CARDIAC ANATOMY LEFT VENTRICLE: The cavity size was mildly dilated. Wall thickness was normal. Systolic function was severely reduced by visual assessment. The estimated ejection fraction was in the range of 30% to 35%. Regional wall motion abnormalities: Akinesis of the mid-distal anteroseptal, anterior, anterolateral, and apical myocardium. AORTIC VALVE: Trileaflet; normal thickness leaflets. Doppler: Transvalvular velocity was within the normal range. There was no stenosis. Mild regurgitation. Mean gradient: 11mm Hg (S). Peak gradient: 18mm Hg (S). AORTA: Aortic root: The aortic root was normal in size. MITRAL VALVE: Structurally normal valve. Doppler: Transvalvular velocity was within the normal range. There was no evidence for stenosis. Mild regurgitation. Mean gradient: 2mm Hg (D). Peak gradient: 4mm Hg (D). LEFT ATRIUM: The atrium was normal in size. RIGHT VENTRICLE: The cavity size was normal. Wall thickness was normal. PULMONIC VALVE: Doppler: Transvalvular velocity was within the normal range. There was no evidence for stenosis. No regurgitation. TRICUSPID VALVE: Structurally normal valve. Doppler: Transvalvular velocity was within the normal range. Mild regurgitation. PULMONARY ARTERY: The main pulmonary artery was normal-sized. Systolic pressure was within the normal range. RIGHT ATRIUM: The atrium was normal in size. PERICARDIUM: There was no pericardial effusion. SYSTEMIC VEINS: Inferior vena cava: The vessel was normal in size. BASIC MEASUREMENTS ADULT Normal Left ventricle LV internal dimension, ED, chordal level, *34.9 mm 43-52 PLAX LV posterior wall thickness, ED 7.1 mm IVS/LVPW ratio, ED 1.26 <1.3 Ventricular septum Septal thickness, ED 8.97 mm Left atrium Anterior-posterior dimension 35 mm Right ventricle RV internal dimension, ED, PLAX 19.1 mm 19-38 DOPPLER MEASUREMENTS ADULT Normal Main pulmonary artery Pressure, S *36 mm Hg =30 Aortic valve Peak velocity, S 212 cm/s Mean velocity, S 149 cm/s VTI, S 32.2 cm Mean gradient, S 11 mm Hg Peak gradient, S 18 mm Hg Mitral valve Peak E-wave velocity 96.3 cm/s Peak A-wave velocity 104 cm/s Mean velocity, D 60.2 cm/s Mean gradient, D 2 mm Hg Peak gradient, D 4 mm Hg Peak E/A ratio 0.9 Maximal regurgitant velocity 361 cm/s Tricuspid valve Regurgitant peak velocity 255 cm/s Peak RV-RA gradient, S 26 mm Hg Maximal regurgitant velocity 255 cm/s Systemic veins Estimated CVP 10 mm Hg Right ventricle RV pressure, S *36 mm Hg <30 LEGEND: Mean values are shown as u=mean value. Asterisk (*) richardson values outside specified normal range. Prepared and signed by Kumar Joyner [id number]
[2016-02-07] MEDS: ATORVASTATIN 40 MG TAB PO SCH (20:52)
[2016-02-08] VITALS (8 sets, daily range): BP systolic 108–133; BP diastolic 55–67; PULSE 55–70; RESP 18–20; TEMP 95.6–97.8; O2SAT 95–99
[2016-02-08] MEDS ORDERED: TEMAZEPAM 15 MG CAP PO PRN (01:15)
[2016-02-08] MEDS: LORazepam 2 MG/ML VIAL IV PUSH PRN (01:25)
[2016-02-08] MEDS: IBUPROFEN 600 MG TAB PO SCH ×3 (02:27→11:59)
[2016-02-08] MEDS: RESP: ALBUTEROL 2.5 MG/IPRATROPIUM 0.5 MG NEB (SCH) NEB ×3 (03:19→16:00)
[2016-02-08] MEDS: HEPARIN SODIUM - SQ 10,000 UNITS/ML VIAL SQ SCH (06:36)
[2016-02-08] MEDS: FAMOTIDINE 20 MG TAB PO SCH (08:40)
[2016-02-08] MEDS: LISINOPRIL 20 MG TAB PO SCH (08:40)
[2016-02-08] MEDS: ASPIRIN EC 81 MG TABEC PO SCH (08:40)
[2016-02-08] MEDS: ISOSORBIDE MONONITRATE 30 MG TAB PO SCH (08:41)
[2016-02-08] MEDS: CARVEDILOL 3.125 MG TAB PO SCH (08:41)
[2016-02-08] MEDS: oxyCODONE/ACETAMINOPHEN 10 MG/325 MG TAB PO PRN (09:00)
--- NOTE | 2016-02-08 11:22 | HHI.FF ---
Face to Face Verification Diagnosis: (1) STEMI (ST elevation myocardial infarction) (2) Non-ischemic cardiomyopathy Home Health Nursing Order: Medical education Signs/symptoms of disease process Nursing assessment with vital signs Instructions: life vest, needs education regarding condition, vest. pt. has learning disability, prior TBI. Rigger Order: To Provide: Community services I have seen patient Niyah Thomson on 02/08/16. My clinical findings support the need for the requested home health care services because: Deconditioned w/ increased weakness Impaired cognition/judgement I certify that my clinical findings support that this patient is homebound because: Impaired cognitive ability/safety Need for psychosocial assistance Poor cardiac reserve Dixie Rasmussen Feb 08, 2016 11:21
--- NOTE | 2016-02-08 11:30 | HHI.PR ---
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 states she has learning disability and cousin coming to learn about life vest no acute changes overnight Review of Systems Constitutional Constitutional Remarks 12 point ROS completed, negative except as noted above Vitals/Results Intake & Output 02/07/16 02/07/16 02/08/16 15:00 23:00 07:00 Intake Total 720 ml 962 ml 120 ml Output Total 500 ml 800 ml 350 ml Balance 220 ml 162 ml -230 ml Intake Oral 720 ml 960 ml 120 ml IV Total 2 ml Output Urine Total 500 ml 800 ml 350 ml # Bowel Movements 0 0 0 Vital Signs Vital Signs Date Time Temp Pulse Resp B/P Pulse Ox O2 Delivery O2 Flow Rate FiO2 02/08/16 08:00 95.6 55 20 108/55 95 02/08/16 06:39 70 02/08/16 04:20 97.3 57 18 132/61 99 02/08/16 03:23 98 Nasal Cannula 2.00 02/08/16 01:06 97.8 63 18 133/67 96 02/07/16 21:00 Nasal Cannula 2.00 02/07/16 20:54 129/70 02/07/16 16:00 97.5 73 20 141/66 95 02/07/16 15:58 95 Nasal Cannula 2.00 02/07/16 12:00 97.8 72 20 126/67 95 CBC/BMP: 02/07/16 0841 02/07/16 0842 Physical Exam General General Appearance: Well Developed, No Acute Distress, Comfortable Eyes Eye Exam: Pupils Equal, Pupils Reactive Ears & Nose Ears & Nose Exam: Nasal Mucosa [place] Throat Throat Exam: Oral Mucosa [place] & Moist Neck Neck Exam: Neck Supple, Trachea Midline Pulmonary Resp Exam: Clear Bilaterally, Breath Sounds Equal, No Distress Cardiology CV Exam: Regular, Normal Sinus Rhythm Gastrointestinal/Abdomen GI Exam: Soft, Non-Tender, Bowel Sounds Present, Non-Distended Musculoskeletal MS Exam: Joints Intact Integumentary Skin Exam: Warm, Dry Extremeties Extremities Exam: No Edema, Pedal Pulses Palpable Neurologic Neuro Exam: Alert, Awake, Oriented, Speech Clear, Moving All Extremities, No Focal Deficits Psychiatric Psych Exam: Appropriate Responses VTE Prophylaxis VTE Prophylaxis Device: SCDs VTE Prophylaxis Meds: Heparin PUD Prophylasis PUD Prophylaxis: Protonix Assessment/Plan Assessment/Plan ASSESSMENT 1. Acute ST elevation [place] due to takotsubo syndrome. 2. Dilated cardiomyopathy. 3. Mild Non obstructive coronary artery disease. 4. Hypertension. 5. Chronic smoker, recently stopped. 6. Chronic obstructive pulmonary disease. 7. Erythrocytosis rule out polycythemia vera. 8. Leukocytosis. 9. Degenerative disc disease with chronic back pain. 10. History of left mandible repair. The patient has some mild facial deformities that I forgot to mention above. PLAN Oxygen/ASA/ASA/BB/JENNIFER-I erythrocytosis is better mild renal insuf pepcid for GI prophylaxis/sq heparin cont analgesic Echo done, EF 30-35% Appreciate Dr. Joyner's input, has ordered Life Vest, pending to arrange [facility] will have nursing obtain home medication list, pt. takes multiple meds, asking if she has to continue poor historian, states she has a learning disability cousin who's retired RN or CRM TECHNICAL LEAD is coming to help with discharge Possible discharge today after life vest ordered and placed on pt. F/U Dr. Joyner 1 week F/U PCP Diet-heart healthy Activity-as tolerated D/W RN D/W Dr. Grayson D/W CM This patient was seen by myself and Dr. Grayson, this note is written on his behalf. Discharge Minutes: 45 Dixie Rasmussen Feb 08, 2016 11:30
[2016-02-08] MEDS ORDERED: LIPI40TA PO (11:32)
[2016-02-08] MEDS ORDERED: IBUP-232 PO (11:32)
[2016-02-08] MEDS ORDERED: LISI-515 PO (11:32)
[2016-02-08] MEDS ORDERED: CARV3.125 PO (11:32)
[2016-02-08] MEDS ORDERED: ISOS30TA3 PO (11:32)
--- NOTE | 2016-02-08 11:33 | HHI.DCPOC ---
Discharge Care Plan Diagnosis: (1) STEMI (ST elevation myocardial infarction) (2) Non-ischemic cardiomyopathy Your Health Problems Are: Chest Pain Shortness of Breath Goals to Promote Your Health * To prevent worsening of your condition and complications * To maintain your health at the optimal level Directions to Meet Your Goals Take your medications as prescribed Follow your dietary instruction Follow activity as directed Keep your appointments as scheduled Take your immunizations and boosters as scheduled If your symptoms worsen call your PCP, if no PCP go to Urgent Care Center or Emergency Room Smoking is Dangerous to Your Health. Avoid second hand smoke Call the 24-hour hour crisis hotline for domestic abuse at Dixie Rasmussen Feb 08, 2016 11:33
[2016-02-08] MEDS: MORPHINE SULFATE 4 MG/ML INJ IV PUSH PRN (11:54)
--- NOTE | 2016-02-08 12:23 | PD.CARD.PN ---
Subjective Subjective Remarks doing well this am on and off CP ready to go home Objective Medications Active Medications Famotidine (Pepcid) 10 mg BID PO; Start 02/08/16 at 21:00 Temazepam (Restoril) 15 mg HS PRN PO Last administered on 02/08/16t 01:25; Admin Dose 15 MG; Start 02/08/16 at 01:15 Vital Signs / I&O Vital Signs Date Time Temp Pulse Resp B/P Pulse Ox O2 Delivery O2 Flow Rate FiO2 02/08/16 12:00 14 02/08/16 11:54 98 Nasal Cannula 2.00 02/08/16 11:38 97 Nasal Cannula 2.00 02/08/16 08:00 95.6 55 20 108/55 95 02/08/16 06:39 70 02/08/16 04:20 97.3 57 18 132/61 99 02/08/16 03:23 98 Nasal Cannula 2.00 02/08/16 01:06 97.8 63 18 133/67 96 02/07/16 21:00 Nasal Cannula 2.00 02/07/16 20:54 129/70 02/07/16 16:00 97.5 73 20 141/66 95 02/07/16 15:58 95 Nasal Cannula 2.00 I/O 02/07/16 02/07/16 02/07/16 02/08/16 02/08/16 02/08/16 07:00 15:00 23:00 07:00 15:00 23:00 Intake Total 0 ml 720 ml 962 ml 120 ml Output Total 500 ml 800 ml 350 ml Balance 0 ml 220 ml 162 ml -230 ml Intake Oral 720 ml 960 ml 120 ml IV Total 0 ml 2 ml Output Urine Total 500 ml 800 ml 350 ml # Bowel Movements 0 0 0 Physical Exam GENERAL: SKIN: Warm and dry. HEAD: Normocephalic. EYES: No scleral icterus. No injection or drainage. NECK: Supple, trachea midline. No JVD or lymphadenopathy. CARDIOVASCULAR: Regular rate and rhythm without murmurs, gallops, or rubs. RESPIRATORY: Breath sounds equal bilaterally. No accessory muscle use. GASTROINTESTINAL: Abdomen soft, non-tender, nondistended. MUSCULOSKELETAL: No cyanosis, or edema. BACK: Nontender without obvious deformity. No CVA tenderness. Laboratory GENERAL: SKIN: Warm and dry. HEAD: Normocephalic. EYES: No scleral icterus. No injection or drainage. NECK: Supple, trachea midline. No JVD or lymphadenopathy. CARDIOVASCULAR: Regular rate and rhythm without murmurs, gallops, or rubs. RESPIRATORY: Breath sounds equal bilaterally. No accessory muscle use. GASTROINTESTINAL: Abdomen soft, non-tender, nondistended. MUSCULOSKELETAL: No cyanosis, or edema. BACK: Nontender without obvious deformity. No CVA tenderness. Imaging Last Impressions Chest X-Ray 02/05/16 1521 Signed Impressions: Service Date/Time: Friday, February 05, 2016 15:35 - CONCLUSION: Suboptimal inspiration. No acute disease demonstrated. Followup 2 view study recommended when clinically feasible. Scott Jiang MD Aorta CTA 02/05/16 0000 Signed Impressions: Service Date/Time: Friday, February 05, 2016 21:51 - CONCLUSION: No dissection, aneurysm or other acute abnormality of the aorta. There is mural atherosclerosis. No perceptible inflammatory changes are seen. Trace atelectasis seen of the lung bases. Study discussed with Dr. Joyner by phone. Scott Jiang MD Assessment and Plan Assessment and Plan STEMI - Takotsubo cardiomyopathy. well compensated. mild CAD. no PCI. chest pain - + pleuritic . inflammatory. cont steroids. NSAIDs. nonischemic cardiomyopathy - EF reduced. fully expect EF to improve in next few months. Plan for LifeVest for arrhythmia protection and then FU 2d echo in 2 months DC planning for today Kumar Joyner MD Feb 08, 2016 12:23
[2016-02-08] MEDS ORDERED: LURA80 PO (12:31)
[2016-02-08] MEDS ORDERED: METF500T PO (12:31)
[2016-02-08] MEDS ORDERED: MIRTA15 PO (12:31)
[2016-02-08] MEDS ORDERED: GABA300C5 PO ×2 (12:31)
[2016-02-08] MEDS ORDERED: LEVO125T4 PO (12:31)
[2016-02-08] MEDS ORDERED: OXYC30TA PO (12:31)
[2016-02-08] MEDS ORDERED: LOVA40TA PO (12:31)
[2016-02-08] MEDS ORDERED: PREM0.3T2 PO (12:31)
[2016-02-08] MEDS ORDERED: GUAN2TAB PO (12:31)
[2016-02-08] MEDS ORDERED: CYCL1TAB29 PO (12:31)
[2016-02-08] MEDS ORDERED: LOSA100T PO (12:31)
[2016-02-08] MEDS ORDERED: FAMOTIDINE 20 MG TAB PO SCH (21:00)
--- NOTE | 2016-02-11 16:52 | HHI.DS ---
Discharge Summary Admission Date Feb 05, 2016 at 15:38 Discharge Date: Feb 08, 2016 Admitting Diagnosis (1) STEMI (ST elevation myocardial infarction) (2) HTN (hypertension) (3) COPD (chronic obstructive pulmonary disease) (4) Chest pain (5) Anxiety (6) Erythrocytosis (7) H/O degenerative disc disease (8) Non-ischemic cardiomyopathy (9) Elevated troponin Procedures 02/05/2016-CARDIAC CATH showed mild nonobstructive coronary artery disease. Takotsubo cardiomyopathy was nonischemic, normal to mildly elevated left side filling pressures. The patient' s ejection fraction is 35%. CBC/BMP: 02/07/16 0841 02/07/16 0842 Imaging Last Impressions Chest X-Ray 02/05/16 1521 Signed Impressions: Service Date/Time: Friday, February 05, 2016 15:35 - CONCLUSION: Suboptimal inspiration. No acute disease demonstrated. Followup 2 view study recommended when clinically feasible. Scott Jiang MD Aorta CTA 02/05/16 0000 Signed Impressions: Service Date/Time: Friday, February 05, 2016 21:51 - CONCLUSION: No dissection, aneurysm or other acute abnormality of the aorta. There is mural atherosclerosis. No perceptible inflammatory changes are seen. Trace atelectasis seen of the lung bases. Study discussed with Dr. Joyner by phone. Scott Jiang MD Hospital Course This is a 70-year-old obese female with extensive past medical history including hypertension, COPD who is an ex-smoker, suffers from peripheral arterial disease, has degenerative disk disease and chronic back pain. She is high-dose narcotic dependent. She came to hospital on February 05, 2016 complaining of chest pain. EKG showed ST elevation in anterior lead involving V2 TO V5. A code STEMI was called. The patient's troponin was elevated at 2.98. Dr. Joyner took the patient to cathead worker and performed urgent cardiac catheterization. Cardiac catheterization revealed mild nonobstructive coronary artery disease. The patient has evidence of cardiomyopathy. EF of 35% with mild anterior ,apical, inferoapical akinesis. The anterior and posterior basal segments were hyperkinetic. This was felt to be consistent with takotsubo cardiomyopathy. The patient was admitted to intensive care unit and was treated medically. After procedure, pt. still complaining of pain. [place] to be costochondritis. NSAIDs ordered. She was transferred out of ICU to telemetry. Patient was continued on Oxygen/ASA/ASA/BB/JENNIFER-I Was initially noted with elevated hemoglobin and hematocrit, erythrocytosis did improve mild renal insuf-BMP was monitored, she was hydrated cautiously Was put on pepcid for GI prophylaxis/sq heparin Appreciate Dr. Joyner's input, he ordered Life Vest, felt that patient's EF would improve. Case management consulted for [facility] Pt. stable for discharge, she was instructed to: F/U Dr. Joyner, will need F/U echo to eval LV function F/U PCP Diet-heart healthy Activity-as tolerated Pt Condition on Discharge: Stable Discharge Disposition: Disch w/ Home Health Serv Discharge Instructions DIET: Follow Instructions for: Heart Healthy Diet Activities you can perform: Weight Bearing as Hank Follow up Referrals: Cardiology - 1 Week with FERMIN JOYNER PCP Follow-up New Medications: Carvedilol (Coreg) 3.125 Mg Tab 3.125 MG PO Q12HR CARDIOMYOPATHY #60 Ref 1 TAB Ibuprofen (Ibuprofen) 600 Mg Tab 600 MG PO Q8H CHEST PAIN #20 Ref 0 TAB Isosorbide Mononitrate ER (Isosorbide Mononitrate ER) 30 Mg Esequiel 30 MG PO DAILY CARDIOMYOPATHY #30 Ref 1 TAB Continued Medications: Cyclobenzaprine (Flexeril) 10 Mg Tab 10 MG PO TID Muscle Spasm #90 Ref 0 TAB Gabapentin (Gabapentin) 300 Mg Cap 300 MG PO HS #30 Ref 2 CAP Gabapentin (Gabapentin) 300 Mg Cap 300 MG PO DAILY #60 Ref 0 CAP Guanfacine (Guanfacine) 2 Mg Tab 2 MG PO DAILY Do not crush, chew or divide tablet. Take with a meal. Blood Pressure Management #30 Ref 0 TAB Levothyroxine (Levothyroxine) 125 Mcg Tab 125 MCG PO DAILY Thyroid #30 Ref 0 TAB Losartan (Losartan) 100 Mg Tab 100 MG PO DAILY Blood Pressure Management #30 Ref 0 TAB Lovastatin (Lovastatin) 40 Mg Tab 40 MG PO HS PRN Stroke Prevention #30 Ref 0 TAB Lurasidone (Latuda) 80 Mg Tab 80 MG PO DAILY #30 Ref 0 TAB Metformin (Metformin) 500 Mg Tab 500 MG PO BIDPC With meals Blood Sugar Management #60 Ref 0 TAB Mirtazapine (Mirtazapine) 15 Mg Tab 15 MG PO HS Depression Control #30 Ref 0 TAB Dixie Rasmussen Feb 11, 2016 16:52
== END 2016-02-08 18:05 | disposition home health service (06) | DRG 281 ==
LOC: NEPA 14:54 → HCIN 15:38 → HCVR 23:15 → N04B 02-06 15:46
PROVIDERS: ADMIT Specialist; ATTEND Specialist
PROC: B2111ZZ Fluoroscopy of Multiple Coronary Arteries using Low Osmolar Contrast (ICD-10-PCS; principal; 2016-02-05)
PROC: 4A023N7 Measurement of Cardiac Sampling and Pressure, Left Heart, Percutaneous Approach (ICD-10-PCS; 2016-02-05)
PROC: B2151ZZ Fluoroscopy of Left Heart using Low Osmolar Contrast (ICD-10-PCS; 2016-02-05)
DX: I51.81 Takotsubo syndrome (principal); I21.3 ST elevation (STEMI) myocardial infarction of unspecified site; N17.9 Acute kidney failure, unspecified; F11.20 Opioid dependence, uncomplicated; I42.0 Dilated cardiomyopathy; D75.1 Secondary polycythemia; J44.9 Chronic obstructive pulmonary disease, unspecified; M94.0 Chondrocostal junction syndrome [Tietze]; I10 Essential (primary) hypertension; D72.829 Elevated white blood cell count, unspecified; I25.10 Atherosclerotic heart disease of native coronary artery without angina pectoris; F41.9 Anxiety disorder, unspecified; G89.29 Other chronic pain; E78.5 Hyperlipidemia, unspecified; E66.9 Obesity, unspecified; Z68.29 Body mass index [BMI] 29.0-29.9, adult; I73.9 Peripheral vascular disease, unspecified; F81.9 Developmental disorder of scholastic skills, unspecified; Z87.891 Personal history of nicotine dependence
CPT/HCPCS: 71010; 71275; 74174; 76937; 80048; 80053; 80061; 80307; 82435; 82550; 82552; 82565; 82947; 83735; 83880; 84100; 84132; 84295; 84443; 84484; 84520; 85025; 85379; 85610; 85652; 85730; 86140; 93005; 93306; 93458; 94640; 94664; C1769; C1893; J1170; J1644; J1940; J2060; J2250; J2270; J2920; J3010; J7030; J7040; Q9967

== ENCOUNTER 2016-02-10 17:17 | Observation (INO) | payer MEDICARE, BC ==
[~2016-02-10] VITALS: Ht 157.5 cm; Wt 70.0 kg
[~2016-02-10 17:17] MED LIST changes: +CARV3.125 PO; +CYCL1TAB29 PO; -DIAZ5 PO; +GABA300C5 PO; -GABA600T PO; +GUAN2TAB PO; +IBUP-232 PO; -IPRAAER IN; +ISOS30TA3 PO; -LATU80TA PO; +LEVO125T4 PO; +LOSA100T PO; -LOVA20TA PO; +LOVA40TA PO; +LURA80 PO; -METF500 PO; +METF500T PO; +MIRTA15 PO; +OXYC30TA PO; -PRED20 PO; +PREM0.3T2 PO; -REME15TA PO
[2016-02-10 18:37] VITALS: RESP 16; O2SAT 97
--- NOTE | 2016-02-10 18:38 | PD ---
HPI Chief Complaint: Chest Pain Time Seen by Provider: 18:07 Travel History International Travel<30 days: No Contact w/Intl Traveler<30days: No Traveled to known affect area: No History of Present Illness HPI 70-year-old female complains of chest pain shortness of breath. Patient was admitted and discharged 2 days ago for STEMI. Patient had cardiac catheter and was found to have Takotsubo cardiomyopathy, well compensated, mild CAD, no PCI. Patient at that time his chest pain with pleuritic component, inflammatory, and was given steroid and NSAIDs. [facility] and advised to follow with program clerk. Patient was discharged home 2 days ago. Patient states that the chest pain is better however she is still having persistent substernal chest pain and left side chest pain and shortness of breath since discharge. Patient states the pain is sharp pain and worse with deep breathing. Patient denies any fever chills coughing congestion. Patient states that she has nausea this morning with no vomiting or diarrhea. PFSH Past Medical History Hx Anticoagulant Therapy: Yes Cardiovascular Problems: Yes Congestive Heart Failure: Yes COPD: Yes Coronary Artery Disease: Yes Diabetes: No Diminished Hearing: No Hypertension: Yes Respiratory: Yes Past Surgical History Appendectomy: Yes Other Surgery: Yes (facial and oral reconstruction; tmj joint) Social History Alcohol Use: Yes (rare) Tobacco Use: No Substance Use: No Allergies-Medications (Allergen,Severity, Reaction): Coded Allergies: Sulfa (Verified Allergy, Severe, 02/10/16) Reported Meds & Prescriptions Reported Meds & Active Scripts Active Isosorbide Mononitrate ER (Isosorbide Mononitrate) 30 Mg Esequiel 30 Mg PO DAILY Ibuprofen 600 Mg Tab 600 Mg PO Q8H Coreg (Carvedilol) 3.125 Mg Tab 3.125 Mg PO Q12HR Reported Metformin (Metformin HCl) 500 Mg Tab 500 Mg PO BIDPC With meals Prempro Blister Pack (Estrogens Conj/Medroxyprogest Acet) 0.3-1.5 Mg Tab Unknown Dose PO DAILY Lovastatin 40 Mg Tab 40 Mg PO HS PRN Gabapentin 300 Mg Cap 300 Mg PO DAILY Gabapentin 300 Mg Cap 300 Mg PO HS Levothyroxine (Levothyroxine Sodium) 125 Mcg Tab 125 Mcg PO DAILY Latuda (Lurasidone) 80 Mg Tab 80 Mg PO DAILY Losartan (Losartan Potassium) 100 Mg Tab 100 Mg PO DAILY Mirtazapine 15 Mg Tab 15 Mg PO HS Guanfacine (Guanfacine HCl) 2 Mg Tab 2 Mg PO DAILY Do not crush, chew or divide tablet. Take with a meal. Oxycodone (Oxycodone HCl) 30 Mg Tab 30 Mg PO Q6H PRN Flexeril (Cyclobenzaprine HCl) 10 Mg Tab 10 Mg PO TID Review of Systems General / Constitutional: No: Fever Eyes: No: Visual changes HENT: No: Headaches Cardiovascular: Positive: Chest Pain or Discomfort Respiratory: No: Shortness of Breath Gastrointestinal: No: Abdominal Pain Genitourinary: No: Dysuria Musculoskeletal: No: Pain Skin: No Rash Neurologic: No: Weakness Psychiatric: No: Depression Endocrine: No: Polydipsia Hematologic/Lymphatic: No: Easy Bruising Physical Exam Narrative GENERAL: Well-nourished, well-developed patient. SKIN: Warm and dry. HEAD: Normocephalic. EYES: No scleral icterus. No injection or drainage. NECK: Supple, trachea midline. No JVD or lymphadenopathy. CARDIOVASCULAR: Regular rate and rhythm without murmurs, gallops, or rubs. RESPIRATORY: Breath sounds equal bilaterally. No accessory muscle use. GASTROINTESTINAL: Abdomen soft, non-tender, nondistended. MUSCULOSKELETAL: No cyanosis, or edema. BACK: Nontender without obvious deformity. No CVA tenderness. Neurologic exam normal. Data Data Last Documented VS Vital Signs Date Time Temp Pulse Resp B/P Pulse Ox O2 Delivery O2 Flow Rate FiO2 02/10/16 18:00 59 18 96 Room Air Orders Electrocardiogram (02/10/16 ) Consult Vascular Access Team (02/10/16 ) Complete Blood Count With Diff (02/10/16 18:26) Comprehensive Metabolic Panel (02/10/16 18:26) Creatine Kinase (Cpk) (02/10/16 18:26) Troponin I (02/10/16 18:26) B-Type Natriuretic Peptide (02/10/16 18:26) Prothrombin Time / Inr (Pt) (02/10/16 18:26) Act Partial Throm Time (Ptt) (02/10/16 18:26) Chest, Single Ap (02/10/16 18:26) Iv Access Insert/Monitor (02/10/16 18:26) Ecg Monitoring (02/10/16 18:26) Oximetry (02/10/16 18:26) [facility] Medical Decision Making Medical Screen Exam Complete: Yes Emergency Medical Condition: Yes Differential Diagnosis Differential diagnosis including acute exacerbation of chronic chest pain, angina, SC, PE, pneumothorax. Narrative Course 70-year-old female with persistent chest pain and shortness of breath. History of nonischemic cardiomyopathy. Kapil Quiroz MD Feb 10, 2016 18:38
--- NOTE | 2016-02-10 18:49 | RADRPT ---
EXAM DATE/TIME: 02/10/2016 18:38 [place] COMPARISON: CHEST SINGLE AP, February 05, 2016, 15:35. INDICATIONS : Chest pain on the left side x2 days. MEDICAL HISTORY : Chronic obstructive pulmonary disease. SURGICAL HISTORY : None. ENCOUNTER: Initial ACUITY: 1 day PAIN SCORE: 7/10 LOCATION: Bilateral chest FINDINGS: A single view of the chest demonstrates the lungs to be symmetrically aerated without evidence of mas s, infiltrate or effusion. The cardiomediastinal contours are unremarkable. Osseous structures are intact. CONCLUSION: No acute cardiopulmonary disease demonstrated. Scott Jiang MD on February 10, 2016 at 18:47 Board Certified Radiologist. This report was verified electronically.
[2016-02-10 19:14] LABS: AUTOMATED NEUTROPHIL # 6.2 TH/MM3 (1.8-7.7); BASOPHIL # 0.1 TH/MM3 (0-0.2); BASOPHIL % 0.8 % (0.0-2.0); EOSINOPHIL # 0.5 TH/MM3 (0-0.4); EOSINOPHIL % 4.5 % (0.0-4.0); HEMATOCRIT 46.3 % (35.0-46.0); LYMPH % 25.9 % (9.0-44.0); LYMPHOCYTE # 2.7 TH/MM3 (1.0-4.8); MEAN CELL VOLUME 90.8 FL (80.0-100.0); MEAN CORPUSCULAR HEMOGLOBIN 31.1 PG (27.0-34.0); MEAN CORPUSCULAR HGB CONC 34.2 % (32.0-36.0); MONO % 9.2 % (0.0-8.0); NEUT % 59.6 % (16.0-70.0); PLATELET COUNT 257 TH/MM3 (150-450); RED CELL DISTRIBUTION WIDTH 13.6 % (11.6-17.2); WHITE BLOOD COUNT 10.5 TH/MM3 (4.0-11.0)
[2016-02-10 19:30] LABS: HEMO FLAGS AUTO DIFF
--- NOTE | 2016-02-10 19:34 | PD ---
Physical Exam Date Seen by Provider: Feb 10, 2016 Time Seen by Provider: 20:00 Narrative 70-year-old female came to the emergency room with history of weakness, dizziness and not feeling well in general since she left the hospital 2 days ago. Patient was admitted for chest pain and elevated troponin. She had a cardiac catheterization done by Dr. Joyner less than 1 week ago. The cardiac catheterization report was read and he diagnosed her with Takotsubo's syndrome. Her ejection fraction was 30% and patient was discharged home on a life pack which is an external defibrillator. Patient was seen by the previous ER physician who has signed over the case to me to follow-up on the blood test results. I went and spoke with the patient and her best friend who sitting with her. She is concerned that she lives alone by herself and has not been able to take care of herself recently. She is requesting to be admitted to a rehabilitation. She still has some chest pain. Her EKG seemed nonspecific. Data Data Last Documented VS Vital Signs Date Time Temp Pulse Resp B/P Pulse Ox O2 Delivery O2 Flow Rate FiO2 02/10/16 18:37 16 97 Room Air 02/10/16 18:00 59 Orders Electrocardiogram (02/10/16 ) Consult Vascular Access Team (02/10/16 ) Complete Blood Count With Diff (02/10/16 18:26) Comprehensive Metabolic Panel (02/10/16 18:26) Creatine Kinase (Cpk) (02/10/16 18:26) Troponin I (02/10/16 18:26) B-Type Natriuretic Peptide (02/10/16 18:26) Prothrombin Time / Inr (Pt) (02/10/16 18:26) Act Partial Throm Time (Ptt) (02/10/16 18:26) Chest, Single Ap (02/10/16 18:26) Iv Access Insert/Monitor (02/10/16 18:26) Ecg Monitoring (02/10/16 18:26) Oximetry (02/10/16 18:26) Vascular Poc Ultrasound (02/10/16 ) Diet Heart Healthy (02/11/16 Breakfast) Place In Observation (02/10/16 ) Vital Signs (Adult) Q4H (02/10/16 20:22) ^ Supervisor 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 / Telemetry .CONTINUOUS (02/10/16 20:22) Intake + Output LARRY.QSHIFT (02/10/16 20:22) Sodium Chlor 0.9% 1000 Ml Inj (Ns 1000 M (02/10/16 22:00) Sodium Chloride 0.9% Flush (Ns Flush) (02/10/16 20:30) Sodium Chloride 0.9% Flush (Ns Flush) (02/10/16 21:00) Ondansetron Inj (Zofran Inj) (02/10/16 21:00) Basic Metabolic Panel (Bmp) (02/11/16 06:00) Complete Blood Count With Diff (02/11/16 06:00) Troponin I (02/10/16 20:22) Troponin I (02/11/16 02:22) Resp Oxygen [place] C Titrat 1-4 L (02/10/16 ) Pt Request For Service (02/10/16 20:22) Ot Request For Service (02/10/16 20:22) Heparin Inj (Heparin Inj) (02/10/16 22:00) Naloxone Inj (Narcan Inj) (02/10/16 20:30) Orthostatic Vital Signs (02/10/16 20:22) Admit Order (Ed Use Only) (02/10/16 20:43) Albuterol Neb (Albuterol Neb) (02/10/16 20:45) Labs Laboratory Tests Test 02/10/16 19:00 White Blood Count 10.5 TH/MM3 Red Blood Count 5.10 MIL/MM3 Hemoglobin 15.9 GM/DL Hematocrit 46.3 % Mean Corpuscular Volume 90.8 FL Mean Corpuscular Hemoglobin 31.1 PG Mean Corpuscular Hemoglobin 34.2 % Concent Red Cell Distribution Width 13.6 % Platelet Count 257 TH/MM3 Mean Platelet Volume 8.5 FL Neutrophils (%) (Auto) 59.6 % Lymphocytes (%) (Auto) 25.9 % Monocytes (%) (Auto) 9.2 % Eosinophils (%) (Auto) 4.5 % Basophils (%) (Auto) 0.8 % Neutrophils # (Auto) 6.2 TH/MM3 Lymphocytes # (Auto) 2.7 TH/MM3 Monocytes # (Auto) 1.0 TH/MM3 Eosinophils # (Auto) 0.5 TH/MM3 Basophils # (Auto) 0.1 TH/MM3 CBC Comment AUTO DIFF Differential Comment AUTO DIFF CONFIRMED Sodium Level 130 MEQ/L Potassium Level 4.5 MEQ/L Chloride Level 102 MEQ/L Carbon Dioxide Level 20.1 MEQ/L Anion Gap 8 MEQ/L Blood Urea Nitrogen 26 MG/DL Creatinine 0.84 MG/DL Estimat Glomerular Filtration 67 ML/MIN Rate Random Glucose 99 MG/DL Calcium Level 8.4 MG/DL Total Bilirubin 0.4 MG/DL Aspartate Amino Transf 35 U/L (AST/SGOT) Alanine Aminotransferase 46 U/L (ALT/SGPT) Alkaline Phosphatase 61 U/L Total Creatine Kinase 76 U/L Troponin I 0.09 NG/ML B-Type Natriuretic Peptide 238 PG/ML Total Protein 6.9 GM/DL Albumin 3.4 GM/DL [facility] Supervised Visit with AMANDEEP: No Interpretation(s) Twelve-lead EKG was reviewed by me. Normal sinus rhythm, normal axis, nonspecific ST-T wave changes, bradycardia. Heart rate of 59 bpm. Narrative Course 9 PM blood test results are back. She is hyponatremic to some extent. I spoke with Dr. Rizo from [facility] was accepted the case. Diagnosis Primary Impression: Dizziness Additional Impressions: Weakness Hyponatremia Admitting Information Admitting Physician Requests: Observation Suresh Driver MD Feb 10, 2016 19:34 Suresh Driver MD Feb 10, 2016 19:34
[2016-02-10 19:52] LABS: ANION GAP 8 MEQ/L (5-15); AST (GOT) 35 U/L (15-37); BICARBONATE 20.1 MEQ/L (21.0-32.0); BLOOD UREA NITROGEN 26 MG/DL (7-18); CHLORIDE 102 MEQ/L (98-107); GLOMERULAR FILTRATION RATE 67 ML/MIN (>89); POTASSIUM 4.5 MEQ/L (3.5-5.1); SODIUM (NA) 130 MEQ/L (136-145)
[2016-02-10 19:57] LABS: ALKALINE PHOSPHATASE 61 U/L (45-117); ALT (GPT) 46 U/L (10-53); TOTAL BILIRUBIN ADULT 0.4 MG/DL (0.2-1.0)
[2016-02-10 19:58] LABS: CREATINE KINASE 76 U/L (26-192)
[2016-02-10 20:07] LABS: SCAN/DIFF AUTO DIFF CONFIRMED
[2016-02-10] MEDS ORDERED: NALOXONE HCL 0.4 MG/ML AMP IV PRN (20:30)
[2016-02-10] MEDS ORDERED: SODIUM CHLORIDE 0.9% FLUSH 5 ML FLUSH FLUSH PRN (20:30)
[2016-02-10] MEDS ORDERED: RESP: ALBUTEROL 2.5 MG/3 ML NEB (SCH) NEB ONE (20:45)
[2016-02-10] MEDS ORDERED: ONDANSETRON HCL 4 MG/2 ML VIAL IVP PRN (21:00)
[2016-02-10] MEDS: SODIUM CHLORIDE 0.9% FLUSH 5 ML FLUSH FLUSH SCH (21:00)
[2016-02-10] MEDS ORDERED: SODIUM CHLOR 0.9% 1000 ML INJ 1,000 ML IV SCH (22:00)
[2016-02-10] MEDS: HEPARIN SODIUM - SQ 10,000 UNITS/ML VIAL SQ SCH (22:00)
[2016-02-10 22:04] VITALS: BP 148/79; PULSE 89; RESP 20; O2SAT 99
[2016-02-10 23:00] VITALS: O2SAT 99
[2016-02-10 23:30] VITALS: BP 103/60; PULSE 62; RESP 20; O2SAT 98
[2016-02-10 23:44] VITALS: BP_SYST 103; BP_SYST 105; BP_SYST 106; BP_DIAS 55; BP_DIAS 60; BP_DIAS 63; RESP 18
[2016-02-11] VITALS (7 sets, daily range): BP systolic 108–133; BP diastolic 64–86; PULSE 58–84; RESP 16–20; TEMP 98–98.6; O2SAT 95–100
[2016-02-11 01:59] LABS: APTT (PATIENT) 21.7 SEC (24.3-30.1); PROTHROMBIN TIME - PATIENT 10.8 SEC (9.8-11.6)
[2016-02-11 08:04] LABS: AUTOMATED NEUTROPHIL # 4.4 TH/MM3 (1.8-7.7); BASOPHIL # 0.1 TH/MM3 (0-0.2); BASOPHIL % 0.7 % (0.0-2.0); EOSINOPHIL # 0.3 TH/MM3 (0-0.4); EOSINOPHIL % 3.9 % (0.0-4.0); HEMATOCRIT 47.2 % (35.0-46.0); HEMO FLAGS DIFF FINAL; LYMPH % 26.1 % (9.0-44.0); MEAN CELL VOLUME 89.5 FL (80.0-100.0); MEAN CORPUSCULAR HEMOGLOBIN 29.9 PG (27.0-34.0); MEAN CORPUSCULAR HGB CONC 33.4 % (32.0-36.0); MONO % 10.4 % (0.0-8.0); NEUT % 58.9 % (16.0-70.0); PLATELET COUNT 230 TH/MM3 (150-450); RED BLOOD COUNT 5.27 MIL/MM3 (4.00-5.30); RED CELL DISTRIBUTION WIDTH 13.4 % (11.6-17.2); WHITE BLOOD COUNT 7.5 TH/MM3 (4.0-11.0)
[2016-02-11 08:31] LABS: BICARBONATE 23.3 MEQ/L (21.0-32.0)
[2016-02-11] MEDS: SODIUM CHLORIDE 0.9% FLUSH 5 ML FLUSH FLUSH SCH ×2 (09:00→20:43)
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
[2016-02-11] MEDS: LURASIDONE 80 MG TAB PO SCH (12:00)
[2016-02-11] MEDS: CARVEDILOL 3.125 MG TAB PO SCH ×2 (12:20→20:43)
[2016-02-11] MEDS: CYCLOBENZAPRINE HCL 10 MG TAB PO SCH ×3 (12:20→20:59)
[2016-02-11] MEDS: LOSARTAN 50 MG TAB PO SCH (12:20)
[2016-02-11] MEDS: HEPARIN SODIUM - SQ 10,000 UNITS/ML VIAL SQ SCH ×2 (12:20→20:44)
[2016-02-11] MEDS: IBUPROFEN 600 MG TAB PO SCH ×2 (12:21→20:42)
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
--- NOTE | 2016-02-11 15:16 | EKG ---
Date Performed: 02/10/2016 Time Performed: 17:58:13 PTAGE: 70 years EKG: SINUS BRADYCARDIA ST ELEVATION, POSSIBLE EARLY REPOLARIZATION ISCHEMIA CANNOT BE COMPLETELY EXCLUDED. CLINICAL CORRELATION SUGGESTED BORDERLINE ECG PREVIOUS TRACING 02/05/2016 23.35.40 Compared to previous tracing, the ST segments have improv ed, though remaining elevated. DOCTOR: Susi Ibarra Interpretating Date/Time 02/11/2016 15:15:21
[2016-02-11] MEDS: PRAVASTATIN SOD 40 MG TAB PO SCH (20:42)
[2016-02-11] MEDS: MIRTAZAPINE 15 MG TAB PO SCH (20:43)
[2016-02-11] MEDS: GABAPENTIN 300 MG CAP PO SCH (20:43)
[2016-02-11] MEDS ORDERED: PRAVASTATIN SOD 40 MG TAB PO SCH (21:00)
[2016-02-12] VITALS (12 sets, daily range): BP systolic 95–167; BP diastolic 54–83; PULSE 59–119; RESP 18–22; TEMP 97.8–98.9; O2SAT 93–99
[2016-02-12] MEDS: IBUPROFEN 600 MG TAB PO SCH ×3 (04:52→22:00)
[2016-02-12] MEDS: LEVOTHYROXINE SODIUM 125 MCG TAB PO SCH (04:53)
--- NOTE | 2016-02-12 08:46 | HHI.PR ---
Subjective Remarks Patient has occasional cough Some pleuritic chest pain on and off with cough only No other complaint No shortness of breath No nausea vomiting No diarrhea Review of system for 10 point system otherwise unremarkable Objective Objective Results - Vital Signs Date Time Temp Pulse Resp B/P Pulse Ox O2 Delivery O2 Flow Rate FiO2 02/12/16 08:07 98.0 60 18 125/66 98 02/12/16 04:52 97.8 119 20 134/66 93 02/12/16 04:48 98.9 59 20 127/69 99 02/12/16 03:27 59 02/12/16 02:10 98.6 59 20 125/63 96 02/12/16 00:00 97.9 66 18 167/83 97 02/11/16 20:00 98.2 68 18 125/77 95 02/11/16 12:53 98.2 58 18 108/64 100 I/O 02/11/16 02/11/16 02/11/16 02/12/16 02/12/16 02/12/16 07:00 15:00 23:00 07:00 15:00 23:00 Intake Total 240 ml 240 ml Output Total 350 ml Balance -110 ml 240 ml Intake Oral 240 ml 240 ml Output Urine Total 350 ml # Voids 1 Result Diagram: 02/11/16 0751 02/11/16 0751 Imaging Last Impressions Chest X-Ray 02/10/16 1826 Signed Impressions: Service Date/Time: February 18:38 - CONCLUSION: No acute cardiopulmonary disease demonstrated. Scott Jiang MD Physical Exam Physical Exam GENERAL: This is a well-nourished, well-developed patient, in no apparent distress. SKIN: No rashes, ecchymoses or lesions. Cool and dry. HEAD: Atraumatic. Normocephalic. No temporal or scalp tenderness. EYES: Pupils equal round and reactive. Extraocular motions intact. No scleral icterus. No injection or drainage. ENT: Airway patent. Patient is noted with jaw deformity from previous surgery. NECK: Trachea midline. No JVD or lymphadenopathy. Supple, nontender, no meningeal signs. CARDIOVASCULAR: Regular rate and rhythm without murmurs, gallops, or rubs. Mid sternum tender to light palpation. RESPIRATORY: Clear to auscultation. Breath sounds equal bilaterally. No wheezes , rales, or rhonchi. GASTROINTESTINAL: Abdomen soft, non-tender, nondistended. No hepato-splenomegaly , or palpable masses. No guarding. MUSCULOSKELETAL: Extremities without clubbing, cyanosis, or edema. No joint tenderness, effusion, or edema noted. No calf tenderness. Negative Homans sign bilaterally. NEUROLOGICAL: Awake, alert oriented 3. No focal deficits. Somewhat anxious. A/P Assessment and Plan (1) Chest pain (2) Physical debility (3) Weakness (4) Non-ischemic cardiomyopathy (5) COPD (chronic obstructive pulmonary disease) (6) HTN (hypertension) (7) RECENT NSTEMI (8) Anxiety (9) Erythrocytosis (10) H/O degenerative disc disease (11) Elevated troponin Plan Admit to Dr. Grayson 70-year-old female with recent admission for STEMI, underwent PCI found with mild nonobstructive CAD, EF 30-35%, findings consistent with Takotsubo cardiomyopathy. Was discharged home with LifeVest. Returns to emergency room complaining of chest pain worse with palpation, similar to previous presentation, mildly elevated troponin. Chest pain pleuritic, trop mildly elevated, similar to previous admission -Continuous cardiac telemetry -Serial cardiac enzymes -Cardiology consult appreciated -Continue Ibuprofen -continue with Life vest, battery is low, d/w RN, friend is bringing battery Hypertension, stable Continue with home meds Erythrocytosis, stable Monitor CBC COPD, stable -DuoNeb's when necessary Back pain, chronic, history of degenerative disc disease Continue home meds Anxiety -resume home meds Home medications reviewed, initiated as indicated Consult physical therapy and occupational therapy Case management consultation for placement, awaiting for bed placement Plan of care discussed with patient. Hopefully DC today Venkat Grayson MD Feb 12, 2016 08:46
[2016-02-12] MEDS: guanFACINE HCL 1 MG TAB PO SCH (09:00)
[2016-02-12] MEDS: LURASIDONE 80 MG TAB PO SCH (09:00)
[2016-02-12] MEDS: CARVEDILOL 3.125 MG TAB PO SCH ×2 (10:30→22:14)
[2016-02-12] MEDS: ISOSORBIDE MONONITRATE 30 MG TAB PO SCH (10:30)
[2016-02-12] MEDS: SODIUM CHLORIDE 0.9% FLUSH 5 ML FLUSH FLUSH SCH ×2 (10:30→21:00)
[2016-02-12] MEDS: LOSARTAN 50 MG TAB PO SCH (10:30)
[2016-02-12] MEDS: GABAPENTIN 300 MG CAP PO SCH ×2 (10:32→22:13)
[2016-02-12] MEDS: HEPARIN SODIUM - SQ 10,000 UNITS/ML VIAL SQ SCH ×2 (10:32→22:00)
[2016-02-12] MEDS: CYCLOBENZAPRINE HCL 10 MG TAB PO SCH ×2 (13:12→17:12)
[2016-02-12] MEDS: ACETAMINOPHEN/HYDROcodone 325 MG/5 MG TAB PO PRN ×2 (17:12→22:14)
[2016-02-12] MEDS: MIRTAZAPINE 15 MG TAB PO SCH (22:13)
[2016-02-12] MEDS: PRAVASTATIN SOD 40 MG TAB PO SCH (22:13)
[2016-02-13 06:13] VITALS: BP 114/68; PULSE 56; RESP 20; TEMP 98.2; O2SAT 98
[2016-02-13] MEDS: IBUPROFEN 600 MG TAB PO SCH ×3 (06:22→18:48)
[2016-02-13] MEDS: ACETAMINOPHEN/HYDROcodone 325 MG/5 MG TAB PO PRN (06:22)
[2016-02-13] MEDS: LEVOTHYROXINE SODIUM 125 MCG TAB PO SCH (06:22)
[2016-02-13 08:00] VITALS: BP 129/61; PULSE 57; RESP 20; TEMP 95.8; O2SAT 98
[2016-02-13 08:33] VITALS: O2SAT 98
[2016-02-13] MEDS ORDERED: TEMAZEPAM 15 MG CAP PO PRN (08:45)
--- NOTE | 2016-02-13 08:45 | HHI.PR ---
Subjective Remarks Patient complaining of mostly from posterior nights she hardly sleep 1-2 hour No pleuritic chest pain this morning No other complaint No shortness of breath No nausea vomiting No diarrhea Review of system for 10 point system otherwise unremarkable Objective Objective Results - Vital Signs Date Time Temp Pulse Resp B/P Pulse Ox O2 Delivery O2 Flow Rate FiO2 02/13/16 08:33 98 Nasal Cannula 2.00 02/13/16 06:13 98.2 56 20 114/68 98 02/12/16 23:59 98.0 65 20 115/60 94 02/12/16 20:00 78 02/12/16 20:00 94 Nasal Cannula 1.50 02/12/16 19:35 98.4 83 19 113/61 97 02/12/16 15:24 97.9 63 18 95/54 98 02/12/16 12:10 98.1 61 22 120/60 98 I/O 02/12/16 02/12/16 02/12/16 02/13/16 02/13/16 02/13/16 07:00 15:00 23:00 07:00 15:00 23:00 Intake Total 240 ml 240 ml 360 ml Balance 240 ml 240 ml 360 ml Intake Oral 240 ml 240 ml 360 ml # Voids 1 1 # Bowel Movements 1 Result Diagram: 02/11/16 0751 02/11/16 0751 Imaging Last Impressions Chest X-Ray 02/10/16 1826 Signed Impressions: Service Date/Time: February 18:38 - CONCLUSION: No acute cardiopulmonary disease demonstrated. Scott Jiang MD Physical Exam Physical Exam GENERAL: This is a well-nourished, well-developed patient, in no apparent distress. SKIN: No rashes, ecchymoses or lesions. Cool and dry. HEAD: Atraumatic. Normocephalic. No temporal or scalp tenderness. EYES: Pupils equal round and reactive. Extraocular motions intact. No scleral icterus. No injection or drainage. ENT: Airway patent. Patient is noted with jaw deformity from previous surgery. NECK: Trachea midline. No JVD or lymphadenopathy. Supple, nontender, no meningeal signs. CARDIOVASCULAR: Regular rate and rhythm without murmurs, gallops, or rubs. Mid sternum tender to light palpation. RESPIRATORY: Clear to auscultation. Breath sounds equal bilaterally. No wheezes , rales, or rhonchi. GASTROINTESTINAL: Abdomen soft, non-tender, nondistended. No hepato-splenomegaly , or palpable masses. No guarding. MUSCULOSKELETAL: Extremities without clubbing, cyanosis, or edema. No joint tenderness, effusion, or edema noted. No calf tenderness. Negative Homans sign bilaterally. NEUROLOGICAL: Awake, alert oriented 3. No focal deficits. Somewhat anxious. A/P Assessment and Plan (1) Chest pain (2) Physical debility (3) Weakness (4) Non-ischemic cardiomyopathy (5) COPD (chronic obstructive pulmonary disease) (6) HTN (hypertension) (7) RECENT NSTEMI (8) Anxiety (9) Erythrocytosis (10) H/O degenerative disc disease (11) Elevated troponin Plan Admit to Dr. Grayson 70-year-old female with recent admission for STEMI, underwent PCI found with mild nonobstructive CAD, EF 30-35%, findings consistent with Takotsubo cardiomyopathy. Was discharged home with LifeVest. Returns to emergency room complaining of chest pain worse with palpation, similar to previous presentation, mildly elevated troponin. Chest pain pleuritic, trop mildly elevated, similar to previous admission -Continuous cardiac telemetry -Serial cardiac enzymes -Cardiology consult appreciated -Continue Ibuprofen -continue with Life vest, battery is low, d/w RN, friend is bringing battery Hypertension, stable Continue with home meds Erythrocytosis, stable Stable CBC COPD, stable -DuoNeb's when necessary Back pain, chronic, history of degenerative disc disease Continue home meds Anxiety -resume home meds Insomnia, Will start Restoril Home medications reviewed, initiated as indicated Consult physical therapy and occupational therapy Discussed with Case management, awaiting for bed placement Plan of care discussed with patient. Hopefully DC today Venkat Grayson MD Feb 13, 2016 08:45
[2016-02-13] MEDS: guanFACINE HCL 1 MG TAB PO SCH (08:58)
[2016-02-13] MEDS: GABAPENTIN 300 MG CAP PO SCH (08:58)
[2016-02-13] MEDS: LOSARTAN 50 MG TAB PO SCH (08:58)
[2016-02-13] MEDS: LURASIDONE 80 MG TAB PO SCH (08:58)
[2016-02-13] MEDS: ISOSORBIDE MONONITRATE 30 MG TAB PO SCH (08:58)
[2016-02-13] MEDS: SODIUM CHLORIDE 0.9% FLUSH 5 ML FLUSH FLUSH SCH (08:59)
[2016-02-13] MEDS: CYCLOBENZAPRINE HCL 10 MG TAB PO SCH ×3 (09:02→18:47)
[2016-02-13] MEDS: CARVEDILOL 3.125 MG TAB PO SCH (09:04)
[2016-02-13 12:00] VITALS: BP 130/61; PULSE 63; RESP 20; TEMP 95.9; O2SAT 98
[2016-02-13] MEDS: HEPARIN SODIUM - SQ 10,000 UNITS/ML VIAL SQ SCH (13:08)
[2016-02-13 15:59] VITALS: PULSE 54
[2016-02-13 16:00] VITALS: BP 113/63; PULSE 66; RESP 20; TEMP 96.4; O2SAT 97
--- NOTE | 2016-02-14 16:46 | HHI.DS ---
Discharge Summary Admission Date Feb 10, 2016 at 20:48 Discharge Date: Feb 13, 2016 Admitting Diagnosis dizziness, weakness (1) Chest pain (2) Physical debility (3) Weakness (4) Non-ischemic cardiomyopathy (5) COPD (chronic obstructive pulmonary disease) (6) HTN (hypertension) (7) RECENT NSTEMI (8) Anxiety (9) Erythrocytosis (10) H/O degenerative disc disease (11) Elevated troponin CBC/BMP: 02/11/16 0751 02/11/16 0751 Imaging Last Impressions Chest X-Ray 02/10/16 1826 Signed Impressions: Service Date/Time: February 18:38 - CONCLUSION: No acute cardiopulmonary disease demonstrated. Scott Jiang MD Hospital Course This is a 70-year-old female with past medical history of COPD, hypertension, degenerative disc disease, anxiety, chronic pain, peripheral arterial disease who presented to [facility] with chest pain and shortness of breath with exertion. Pt. has PMHx of COPD, HTN, bipolar disease. Was recently admitted on 02/05/2016 with similar chest pain, was found with STEMI and underwent emergent PCI per Dr. Joyner. Findings demonstrated mild nonobstructive CAD. Ventriculogram demonstrated apical ballooning with basilar hyperkinesis consistent with Takotsubo cardiomyopathy. EF was found to be 30-35 , Life vest was recommended. Pt. was discharged home with [facility] in stable condition with vest in place. Pt. returns to the emergency room complaining of shortness of breath with activity as well as chest pain across sternum which increases with palpation and deep breathing. There is no radiation, no nausea, no diaphoresis. Indicates is similar to previous presentation but more severe. Denied any fever, no chills, no cough no congestion. In the ED, she was evaluated and laboratory workup was completed. Troponin was noted mildly elevated similar to previous presentation. No EKG changes. Sodium was 130. B natruretic peptide mildly elevated at 238, chest x-ray did not reveal any acute findings. CBC was remarkable for elevated hemoglobin and hematocrit which is similar to previous admission and actually improving. Patient is very anxious, indicates that she cannot be by herself anymore, and needs more help. Her home health care agency was talking to a rehabilitation facility for possible placement. Patient was admitted under observation for further evaluation and treatment. (1) Chest pain (2) Physical debility (3) Weakness (4) Non-ischemic cardiomyopathy (5) COPD (chronic obstructive pulmonary disease) (6) HTN (hypertension) (7) RECENT NSTEMI (8) Anxiety (9) Erythrocytosis (10) H/O degenerative disc disease (11) Elevated troponin During the course of the hospitalization, the following events took place: 70-year-old female with recent admission for STEMI, underwent PCI found with mild nonobstructive CAD, EF 30-35%, findings consistent with Takotsubo cardiomyopathy. Was discharged home with LifeVest. Returns to emergency room complaining of chest pain worse with palpation, similar to previous presentation, mildly elevated troponin. Chest pain pleuritic, trop mildly elevated, similar to previous admission, non cardiac. -Continuous cardiac telemetry -Serial cardiac enzymes completed, negative. -Cardiology consult appreciated, recommended to continue tx, no additional work up. -Continued Ibuprofen -continue with Life vest, battery was low, d/w RN, friend was bringing battery- replaced. Hypertension, stable Continued with home meds Erythrocytosis, stable Stable CBC COPD, stable -DuoNeb's when necessary Back pain, chronic, history of degenerative disc disease Continued home meds Anxiety -resumed home meds Insomnia, started on Restoril Home medications reviewed, initiated as indicated Consult physical therapy and occupational therapy Discussed with Case management, awaiting for bed placement, difficulty with placement because she had life vest. Therefore, pt. had to remain in hospital. She was not a safe home discharge, no family to assist. Pt. finally accepted at [facility], discharged in stable condition. Pt Condition on Discharge: Stable Discharge Disposition: Discharge to SNF Discharge Instructions DIET: Follow Instructions for: Heart Healthy Diet Activities you can perform: Weight Bearing as Hank Follow up Referrals: Cardiology - [address] JOYNER PCP Follow-up Continued Medications: Carvedilol (Coreg) 3.125 Mg Tab 3.125 MG PO Q12HR CARDIOMYOPATHY #60 Ref 1 TAB Cyclobenzaprine (Flexeril) 10 Mg Tab 10 MG PO TID Muscle Spasm #90 Ref 0 TAB Gabapentin (Gabapentin) 300 Mg Cap 300 MG PO HS #30 Ref 2 CAP Gabapentin (Gabapentin) 300 Mg Cap 300 MG PO DAILY #60 Ref 0 CAP Guanfacine (Guanfacine) 2 Mg Tab 2 MG PO DAILY Do not crush, chew or divide tablet. Take with a meal. Blood Pressure Management #30 Ref 0 TAB Ibuprofen (Ibuprofen) 600 Mg Tab 600 MG PO Q8H CHEST PAIN #20 Ref 0 TAB Isosorbide Mononitrate ER (Isosorbide Mononitrate ER) 30 Mg Esequiel 30 MG PO DAILY CARDIOMYOPATHY #30 Ref 1 TAB Levothyroxine (Levothyroxine) 125 Mcg Tab 125 MCG PO DAILY Thyroid #30 Ref 0 TAB Losartan (Losartan) 100 Mg Tab 100 MG PO DAILY Blood Pressure Management #30 Ref 0 TAB Lovastatin (Lovastatin) 40 Mg Tab 40 MG PO HS PRN Stroke Prevention #30 Ref 0 TAB Lurasidone (Latuda) 80 Mg Tab 80 MG PO DAILY #30 Ref 0 TAB Metformin (Metformin) 500 Mg Tab 500 MG PO BIDPC With meals Blood Sugar Management #60 Ref 0 TAB Mirtazapine (Mirtazapine) 15 Mg Tab 15 MG PO HS Depression Control #30 Ref 0 TAB Discontinued Medications: Conjugated Estrogens-Medroxyprogesterone (Prempro Blister Pack) 0.3-1.5 Mg Tab Unknown Dose PO DAILY Estrogen Supplements #1 Ref 0 PACK Oxycodone (Oxycodone) 30 Mg Tab 30 MG PO Q6H PRN PAIN Ref 0 TAB Dixie Rasmussen Feb 14, 2016 16:46
== END 2016-02-13 18:54 | disposition home or self-care (01) ==
LOC: NEPC 17:17 → NEDA 20:48 → NEDH 02-11 00:55 → NEDA 02-11 07:53 → NEDH 02-11 07:53 → NEPGCP 02-12 02:00
PROVIDERS: ADMIT Internal Medicine; ATTEND Internal Medicine
DX: R07.89 Other chest pain (principal); R42 Dizziness and giddiness; I42.9 Cardiomyopathy, unspecified; I51.81 Takotsubo syndrome; I50.9 Heart failure, unspecified; I25.10 Atherosclerotic heart disease of native coronary artery without angina pectoris; I10 Essential (primary) hypertension; I25.2 Old myocardial infarction; M54.9 Dorsalgia, unspecified; G89.29 Other chronic pain; I73.9 Peripheral vascular disease, unspecified; J44.9 Chronic obstructive pulmonary disease, unspecified; E87.1 Hypo-osmolality and hyponatremia; G47.00 Insomnia, unspecified; F41.9 Anxiety disorder, unspecified; F31.9 Bipolar disorder, unspecified; D75.1 Secondary polycythemia; Z87.891 Personal history of nicotine dependence
CPT/HCPCS: 71010; 80048; 80053; 82550; 83880; 84484; 85025; 85610; 85730; 93005; 94664; 97163; 97166; 99285; G0378; G8987; G8988; J1644; J7030; J7613; 76937